=== PATIENT | female | born 1945 | race Caucasian/White ===

== ENCOUNTER → 2023-08-19 12:56 | Outpatient (REF) | payer MEDICARE, SELFPAY ==
[2023-08-19 14:24] LABS: ALT (SGPT) 18 U/L (0-35); AST (SGOT) 32 U/L (14-36); Albumin 3.8 g/dl (3.5-5.0); Alkaline Phosphatase 89 U/L (38-126); Blood Urea Nitrogen 25 mg/dl (7-17); Calcium 9.2 mg/dl (8.4-10.2); Carbon Dioxide 26 mmol/L (22-30); Chloride 105 mmol/L (98-107); Glucose 98 mg/dl (70-99); Potassium 4.3 mmol/L (3.5-5.1); Sodium 136 mmol/L (135-145); Total Bilirubin 0.6 mg/dl (0.2-1.3)
[2023-08-19 14:51] LABS: Vitamin D, 25-OH*** 36.4 ng/mL (30-80)
[2023-08-19 14:58] LABS: TSH < 0.02 uIU/ml (0.47-4.68)
== END ==
LOC: REG 12:56
PROVIDERS: ATTENDING PHYSICIAN Internal Medicine Endocrinology, Diabetes & Metabolism; FAMILY PHYSICIAN Family Medicine
DX: E03.8 Other specified hypothyroidism (principal); E06.3 Autoimmune thyroiditis; E55.9 Vitamin D deficiency, unspecified
CPT/HCPCS: 36415; 80053; 82306; 84443

== ENCOUNTER → 2023-09-08 13:36 | Outpatient (REF) | payer MEDICARE, SELFPAY ==
[2023-09-08 14:29] LABS: ALT (SGPT) 19 U/L (0-35); AST (SGOT) 35 U/L (14-36); Albumin 3.8 g/dl (3.5-5.0); Alkaline Phosphatase 87 U/L (38-126); Blood Urea Nitrogen 22 mg/dl (7-17); Calcium 9.4 mg/dl (8.4-10.2); Carbon Dioxide 25 mmol/L (22-30); Chloride 106 mmol/L (98-107); Glucose 100 mg/dl (70-99); Sodium 136 mmol/L (135-145); Total Bilirubin 0.4 mg/dl (0.2-1.3); Total Protein 6.1 g/dl (6.3-8.2); eGFR 56.95
[2023-09-08 15:02] LABS: TSH < 0.02 uIU/ml (0.47-4.68)
[2023-09-08 15:56] LABS: Vitamin D, 25-OH*** 40.7 ng/mL (30-80)
== END ==
LOC: REG 13:36
PROVIDERS: ATTENDING PHYSICIAN Internal Medicine Endocrinology, Diabetes & Metabolism; FAMILY PHYSICIAN Family Medicine
DX: E03.8 Other specified hypothyroidism (principal); E06.3 Autoimmune thyroiditis; E55.9 Vitamin D deficiency, unspecified
CPT/HCPCS: 36415; 80053; 82306; 84443

== ENCOUNTER → 2023-09-28 12:13 | Outpatient (REF) | payer MEDICARE, SELFPAY ==
[2023-09-28 13:42] LABS: ALT (SGPT) 18 U/L (0-35); AST (SGOT) 29 U/L (14-36); Albumin 3.6 g/dl (3.5-5.0); Alkaline Phosphatase 87 U/L (38-126); Blood Urea Nitrogen 23 mg/dl (7-17); Calcium 9.6 mg/dl (8.4-10.2); Carbon Dioxide 24 mmol/L (22-30); Chloride 104 mmol/L (98-107); Glucose 108 mg/dl (70-99); Potassium 4.4 mmol/L (3.5-5.1); Sodium 136 mmol/L (135-145); Total Bilirubin 0.3 mg/dl (0.2-1.3); Total Protein 5.9 g/dl (6.3-8.2); eGFR > 60.00
[2023-09-28 14:00] LABS: Vitamin D, 25-OH*** 31.6 ng/mL (30-80)
[2023-09-28 14:14] LABS: TSH < 0.02 uIU/ml (0.47-4.68)
== END ==
LOC: REG 12:13
PROVIDERS: ATTENDING PHYSICIAN Internal Medicine Endocrinology, Diabetes & Metabolism; FAMILY PHYSICIAN Family Medicine
DX: E55.9 Vitamin D deficiency, unspecified (principal); E03.8 Other specified hypothyroidism; E06.3 Autoimmune thyroiditis
CPT/HCPCS: 36415; 80053; 82306; 84443

== ENCOUNTER → 2023-10-14 10:45 | Outpatient (REF) | payer MEDICARE, SELFPAY ==
[2023-10-14 15:55] LABS: ALT (SGPT) 17 U/L (0-35); AST (SGOT) 31 U/L (14-36); Albumin 3.7 g/dl (3.5-5.0); Alkaline Phosphatase 82 U/L (38-126); Blood Urea Nitrogen 23 mg/dl (7-17); Calcium 9.8 mg/dl (8.4-10.2); Carbon Dioxide 28 mmol/L (22-30); Chloride 102 mmol/L (98-107); Glucose 87 mg/dl (70-99); Potassium 4.5 mmol/L (3.5-5.1); Sodium 136 mmol/L (135-145); Total Bilirubin 0.4 mg/dl (0.2-1.3); Total Protein 6.1 g/dl (6.3-8.2)
[2023-10-14 16:12] LABS: Free T4 0.68 ng/dl (0.78-2.19); Vitamin D, 25-OH*** 31.4 ng/mL (30-80)
[2023-10-14 16:25] LABS: TSH 2.82 uIU/ml (0.47-4.68)
[2023-10-15 10:16] LABS: Intact PTH 54.1 pg/ml (13.6-85.8)
[2023-10-16 21:52] LABS: Thyroid Stim. Immunoglobulin <0.10 IU/L (<=0.54)
[2023-10-17 02:29] LABS: Total T3 (Sendout) 50 ng/dL (80-200)
[2023-10-17 02:37] LABS: TSH Receptor Antibody <1.10 IU/L (<=1.75)
== END ==
LOC: HWLAB 10:45
PROVIDERS: ATTENDING PHYSICIAN Internal Medicine Endocrinology, Diabetes & Metabolism; FAMILY PHYSICIAN Family Medicine
DX: M81.0 Age-related osteoporosis without current pathological fracture (principal); E55.9 Vitamin D deficiency, unspecified; E03.8 Other specified hypothyroidism; E06.3 Autoimmune thyroiditis
CPT/HCPCS: 36415; 80053; 82306; 83520; 83970; 84439; 84443; 84445; 84480

== ENCOUNTER → 2023-10-26 12:32 | Outpatient (REF) | payer MEDICARE, SELFPAY ==
[2023-10-26 17:19] LABS: 24 Hour Urine Total Volume 500 ml
[2023-10-26 17:51] LABS: 24 Hour Urine Calcium 49.5 mg/day; Urine Calcium 9.9 mg/dl
== END ==
LOC: HWLAB 12:32
PROVIDERS: ATTENDING PHYSICIAN Internal Medicine Endocrinology, Diabetes & Metabolism; FAMILY PHYSICIAN Family Medicine
DX: M81.0 Age-related osteoporosis without current pathological fracture (principal)
CPT/HCPCS: 81050; 82340; 82570

== ENCOUNTER 2023-11-10 08:32 | Emergency (ER) | payer MEDICARE, SELFPAY ==
[2023-11-10 08:36] VITALS: BP 168/82
--- NOTE | 2023-11-10 10:16 | ED.GENMED ---
History of Present Illness
<Celina Mcgraw PA-C - Last Filed: 11/10/23 15:54>
General
Chief Complaint: Bowel Problem
Source: patient
Exam Limitations: none
Time Seen by Provider: 11/10/23 09:53
Nursing documentation reviewed up to this point in time: agreed with
Travel History
Have you had any contact with someone who has COVID-19?: No
Do you have any symptoms of coronavirus? Fever > 100 degrees, chills, cough, shortness of breath, sore throat, loss of taste or smell, muscle aches, or headache?: No
History of Present Illness
History of Present Illness:
Patient is an 78 year old female w history hypertension, hypothyroid, diverticulitis presenting to the emergency department for evaluation of constipation. Patient states that she has had very few, small bowel movements over the past 2 weeks. She
denies any abdominal pain, nausea, vomiting, decreased appetite, or fever. Patient denies any urinary symptoms, chest pain, or shortness of breath. She denies any hematochezia or melena.
Patient was seen by her senior asic engineer in early October where her TSH was found to be significantly low and her levothyroxine was discontinued. Patient states symptoms of constipation and chills began approx 1-2 weeks after d/c'ing levothyroxine. She
spoke with her senior asic engineer this past Tuesday, about 3 days ago, and was instructed to restart levothyroxine and try Benefiber BID. She has not noticed much increase in frequency of bowel movements and came to emergency department for further
evaluation.
Past History
<Celina Mcgraw PA-C - Last Filed: 11/10/23 15:54>
Past History
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
ED Past Surgical History: Gynecological (hysterectomy)
Social History
Tobacco: Non-smoker
Alcohol: Occasional
Drug: None
Personal:
Living: with family
Family History
Family History: Other (reviewed and non-contributory)
Review of Systems
<Celina Mcgraw PA-C - Last Filed: 11/10/23 15:54>
Review of Systems
Allergies reviewed?: Yes
All Other Systems: ROS reviewed and negative except as documented in HPI and ROS
Phy Exam
<Celina Mcgraw PA-C - Last Filed: 11/10/23 15:54>
Physical Exam
Physical Exam:
Vitals: Patient's vital signs are stable
General: Patient is well appearing, no acute distress
Skin: Warm and dry, no rashes or lesions
Head: Normocephalic, atraumatic
Eyes: Sclera nonicteric. EOMs intact. No nystagmus.
Throat: Protecting airway
Neck: Normal ROM, no cervical spine tenderness, no meningismus
Cardiac: Regular rate and rhythm, no murmurs.
Pulm: Normal respiratory effort, no wheezes, rales, rhonchi heard on exam.
Abdomen: Abdomen soft and nontender in all four quadrants, no rebound tenderness or guarding
Rectal: No stool in rectal vault, guaiac negative
Extremities: No evidence of cyanosis or edema; DP pulses palpable bilaterally
Neuro: AAOx3. CN II-XII intact. No focal neurologic deficits.
Psychiatric: Normal affect.
Course
<Celina Mcgraw PA-C - Last Filed: 11/10/23 15:54>
Orders/Labs/Results
Orders:
Orders
11/10/23 10:30
0.9% Sodium Chloride 1000 ml [Nss] 1,000 ml IV BOLUS
Obstruct Series W/PA Chest [CR Obstruct Series W/pa Chest] Urgent
Comment:
Reason For Exam: cosntipation
11/10/23 11:01
Complete Blood Count/With Diff Urgent
Comprehensive Metabolic Panel Urgent
Free T4 Urgent
Lipase Urgent
TSH Reflex To Free T4 Urgent
Abnormal Lab Results
11/10/23
11:01
RBC 4.19 L 10^6/uL
(4.20-5.40)
Hgb 11.7 L g/dL
(12.0-16.0)
Hct 35.2 L %
(37.0-47.0)
Absolute Monos (auto) 0.7 H 10^3/uL
(0.1-0.6)
Monocytes % 9.5 H %
(1.7-9.3)
Creatinine 1.1 H mg/dL
(0.6-1.0)
AST 39 H U/L
(14-36)
TSH (Reflex) 56.30 H uIU/ml
(0.47-4.68)
11/10/23 11:01
11/10/23 11:01
Vital Signs
Initial and Last Documented VS:
Initial Vital Signs
Temp Pulse Resp BP Pulse Ox
97.6 F 64 18 168/82 99
11/10/23 08:36 11/10/23 08:36 11/10/23 08:36 11/10/23 08:36 11/10/23 08:36
Last Documented Vital Signs
Temp Pulse Resp BP Pulse Ox
97.6 F 61 18 112/62 100
11/10/23 08:36 11/10/23 14:47 11/10/23 14:47 11/10/23 14:47 11/10/23 14:47
Sugeylt;Sanjeev Kang DO - Last Filed: 11/10/23 10:34>
Orders/Labs/Results
Orders:
Orders
11/10/23 10:30
0.9% Sodium Chloride 1000 ml [Nss] 1,000 ml IV BOLUS
Obstruct Series W/PA Chest [CR Obstruct Series W/pa Chest] Urgent
Comment:
Reason For Exam: cosntipation
11/10/23 11:01
Complete Blood Count/With Diff Urgent
Comprehensive Metabolic Panel Urgent
Free T4 Urgent
Lipase Urgent
TSH Reflex To Free T4 Urgent
Abnormal Lab Results
11/10/23
11:01
RBC 4.19 L 10^6/uL
(4.20-5.40)
Hgb 11.7 L g/dL
(12.0-16.0)
Hct 35.2 L %
(37.0-47.0)
Absolute Monos (auto) 0.7 H 10^3/uL
(0.1-0.6)
Monocytes % 9.5 H %
(1.7-9.3)
Creatinine 1.1 H mg/dL
(0.6-1.0)
AST 39 H U/L
(14-36)
TSH (Reflex) 56.30 H uIU/ml
(0.47-4.68)
11/10/23 11:01
11/10/23 11:01
Vital Signs
Initial and Last Documented VS:
Initial Vital Signs
Temp Pulse Resp BP Pulse Ox
97.6 F 64 18 168/82 99
11/10/23 08:36 11/10/23 08:36 11/10/23 08:36 11/10/23 08:36 11/10/23 08:36
Last Documented Vital Signs
Temp Pulse Resp BP Pulse Ox
97.6 F 61 18 112/62 100
11/10/23 08:36 11/10/23 14:47 11/10/23 14:47 11/10/23 14:47 11/10/23 14:47
<Celina Mcgraw PA-C - Last Filed: 11/10/23 15:54>
MDM/Problems Addressed
Differential Diagnosis Includes:
Not limited to: constipation, hypothyroid, diverticulitis, IBS, bowel obstruction, malignancy
MDM/Problems Addressed:
78 year old female with history as documented presenting for evaluation of constipation over the past two weeks. This did start following discontinuation of Synthroid by direction of her senior asic engineer. No associated abdominal pain, fevers, nausea,
or vomiting. Patient did restart Synthroid 3 days ago after speaking to senior asic engineer. Vitals stable. Exam as above. Patient very well appearing, in no apparent distress. Abdomen soft and nontender. Rectal exam revealed no stool in rectal vault,
guaiac negative. No evidence of fecal impaction. Will check basic labs, thyroid, plan film of abdomen given empty rectal vault. Ancipitate discharge. Will monitor closely.
Xray shows stool in colon consistent with constipation without any evidence of obstruction.
Labs noted. TSH is elevated to 56.3. Free T4 at the lower limit of normal at 0.80. Patient does have stable vital signs, she is alert and oriented. I do believe patient is displaying symptoms from subclinical hypothyroidism-likely due to recent
time off of levothyroxine. This is likely to explain constipation. No indication for admission. Return precautions discussed at length. Recommended magnesium citrate, MiraLAX at home for constipation. She should continue to take medication as
prescribed and follow with endocrinology for further management hypothyroidism. She will call for appointment tomorrow. All questions answered.
Chronic conditions affecting care:
Hypothyroid, diverticulitis
Acute Exacerbation and/or Progression of Chronic Illness:
Subclinical hypothyroidism
<Celina Mcgraw PA-C - Last Filed: 11/10/23 15:54>
*Radiology
Radiology exam reviewed: preliminary read by ED provider and radiology read reviewed
*Pulse Oximetry
Patient hypoxic: no
*EKG
Interpreted by ED Provider?: NA
*Retail Director Interpretation
Rate: Retail Director- N/A
*Critical Care Note
Total Time (30-74mins, 75-104mins- exclusive of procedures): Not Applicable
Data Reviewed
Review of Other/Old Records Reveals: Labs and Records
Source: previous hospital records
ED Attending Note
<Celina Mcgraw PA-C - Last Filed: 11/10/23 15:54>
-
Portions of this chart may have been created with voice recognition software.� Occasional wrong word or��sound alike� substitutions may have occurred due to the inherent limitations of voice recognition software.
<Sanjeev Kang DO - Last Filed: 11/10/23 10:34>
ED Attending Note
Patient seen and examined by attending physician: Yes
I performed the substantive portion of visit, reviewed & personally made and approve the management plan that is documented in note by myself or ODILON.: Yes
I performed a history and physical exam of patient and discussed management with resident, I reviewed resident's note and agree with documented findings and plan of care.: Yes
ED Attending Note:
I evaluated the patient at bedside. The patient has an empty rectal vault. Will check thyroid testing as well as plain film imaging of the abdomen however she has no significant abdominal pain nor abdominal tenderness.
Discharge Plan
Departure
Patient Disposition: Home (Routine Discharge)
Date of Disposition: 11/10/23
Time of Disposition: 14:55
Patient with high blood pressure during this ER visit?: No
Condition: Good
Covid-19: Not Applicable
Discharge Problem:
Constipation, Subclinical hypothyroidism
Instructions: Hypothyroidism (underactive thyroid), Constipation, Adult (DC)
Prescriptions:
No Action
levothyroxine 100 MCG tablet
100 mcg PO HS
cyanocobalamin (vitamin B-12) 1,000 MCG tablet
1,000 mcg PO DAILY
cholecalciferol (vitamin D3) 1,000 UNITS tablet
1,000 units PO DAILY
multivitamin with folic acid [Tab-A-Milla] 1 TABLET tablet
1 tab PO DAILY
aspirin 81 MG tablet,chewable
81 mg PO DAILY Qty: 30 0RF
Rx Instructions:
take with plavix x 21 days then cont aspirin alone
lisinopril capsule
20 mg PO HS
simvastatin capsule
20 mg PO HS
Referrals:
Buzz Barboza MD [Family Provider] - Follow up in 2-3 days
Activity Restrictions/Additional Instructions:
- Return to the emergency department with any high fevers, severe abdominal pain, persistent nausea/vomiting, dizziness/lightheadedness, altered mental status, worsening in current symptoms, or any other concerns
-As discussed�you should try magnesium citrate at home for constipation. You can buy this [id number]. You should drink half of the bottle and repeat in 12 hours if no bowel movement. You can also try MiraLAX. It is important to stay
well-hydrated. Eat foods high in fiber
-As discussed�your TSH level was elevated while in the emergency department. Your T4 level was found to be at the low end of the normal range. You should follow-up with your senior asic engineer in the next few days for further evaluation/management of
hypothyroidism. Continue to take your levothyroxine as prescribed.
Interventions
Interventions:
*Risk Screen - Suicide Last Done: 11/10/23 15:15
*General Assessment Last Done: 11/10/23 15:15
*Neglect/Abuse Screening Last Done: 11/10/23 11:32
ED- Fall Risk Assessment Last Done: 11/10/23 15:15
*ED COVID-19 Vaccine History Last Done: 11/10/23 08:36
*Nursing Disposition Last Done: 11/10/23 15:15
GZ-Gjzfuc-Hapusfnvyu Assessment Last Done: 11/10/23 11:32
Discharge Date and Time
Discharge Date/Time: 11/10/23 15:30
Print Language: [place]LAND[place]
[2023-11-10] MEDS: NSS 1000 IV (11:05)
[2023-11-10 11:16] LABS: % Basophils 0.4 % (0-2); % Eosinophils 1.9 % (0-6); % Immature Granulocytes 0.3 % (0-0.5); % Lymphocytes 22.1 % (20.5-51.1); % Monocytes 9.5 % (1.7-9.3); % Neutrophils 65.8 % (42.2-75.2); Absolute Eosinophils 0.1 10^3/uL (0-0.7); Absolute Lymphocytes 1.5 10^3/uL (1.2-3.4); Absolute Monocytes 0.7 10^3/uL (0.1-0.6); Absolute Neutrophils 4.5 10^3/uL (1.4-6.5); Hematocrit 35.2 % (37.0-47.0); Hemoglobin 11.7 g/dL (12.0-16.0); Mean Corp Hgb Conc. 33.2 g/dL (33.0-37.0); Mean Corpuscular Hgb 27.9 pg (27.0-31.0); Mean Platelet Volume 9.7 fL (7.4-10.4); Nucleated Red Blood Cells % 0 %; Platelet Count 330 10^3/uL (130-400); Red Blood Cell Count 4.19 10^6/uL (4.20-5.40); Red Cell Dist. Width 13.2 % (11.5-14.5); White Blood Cell Count 6.9 10^3/uL (4.8-10.8)
[2023-11-10 12:09] LABS: ALT (SGPT) 17 U/L (0-35); AST (SGOT) 39 U/L (14-36); Albumin 4.1 g/dl (3.5-5.0); Alkaline Phosphatase 88 U/L (38-126); Blood Urea Nitrogen 17 mg/dl (7-17); Calcium 9.7 mg/dl (8.4-10.2); Carbon Dioxide 27 mmol/L (22-30); Chloride 105 mmol/L (98-107); Glucose 96 mg/dl (70-99); Lipase 164 U/L (23-300); Potassium 4.2 mmol/L (3.5-5.1); Sodium 136 mmol/L (135-145); Total Bilirubin 0.4 mg/dl (0.2-1.3); Total Protein 6.5 g/dl (6.3-8.2)
[2023-11-10 12:34] VITALS: BP 152/73
[2023-11-10 14:47] VITALS: BP 112/62
== END 2023-11-10 15:30 | disposition home or self-care (01) ==
LOC: EMR 08:32
PROVIDERS: Physician Assistant; EMERGENCY PHYSICIAN Emergency Medicine; FAMILY PHYSICIAN Family Medicine
DX: K59.00 Constipation, unspecified (principal); E03.8 Other specified hypothyroidism; I10 Essential (primary) hypertension; E78.00 Pure hypercholesterolemia, unspecified; Z86.73 Personal history of transient ischemic attack (TIA), and cerebral infarction without residual deficits; Z90.710 Acquired absence of both cervix and uterus
CPT/HCPCS: 99283; 96360; 74022; 80053; 83690; 84439; 84443; 85025

== ENCOUNTER → 2024-02-16 13:49 | Outpatient (REF) | payer MEDICARE, SELFPAY | LOC: WDC 13:49 | PROVIDERS: ATTENDING PHYSICIAN Obstetrics & Gynecology Gynecology; FAMILY PHYSICIAN Family Medicine | DX: Z12.31 Encounter for screening mammogram for malignant neoplasm of breast (principal) | CPT/HCPCS: 77063; 77067 ==

== ENCOUNTER 2024-07-17 09:10 | Emergency (ER) | payer MEDICARE, SELFPAY ==
[2024-07-17 09:18] VITALS: BP 164/83
[2024-07-17 09:56] VITALS: BMI 23.8
[2024-07-17 09:58] VITALS: BP 159/86
--- NOTE | 2024-07-17 10:00 | ED.GENMED ---
Addendum entered and electronically signed by Lorenzo Freeman PA-C 07/19/24 07:03:
Luminary urine culture shows greater than 100,000 colony-forming units of gram-negative bacilli. On Keflex. Sensitivities pending
Original Note:
History of Present Illness
<Talha Landis MD, Resident - Last Filed: 07/18/24 15:02>
General
Chief Complaint: Urinary Symptoms
Time Seen by Provider: 07/17/24 09:57
Travel History
Have you traveled to any high risk areas for coronavirus over the past 14 days?: No
Have you had any contact with someone who has COVID-19?: No
Do you have any symptoms of coronavirus? Fever > 100 degrees, chills, cough, shortness of breath, sore throat, loss of taste or smell, muscle aches, or headache?: No
History of Present Illness
History of Present Illness:
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
emergency department today with 2 days history of vaginal discomfort and hematuria with blood clots this morning. She also reports symptoms of dysuria but denies flank pain, fever and chills. Patient reports that she has a history of vaginal
cancer that was treated with surgery and radiation with total abdominal hysterectomy about 30 years ago and has been wearing adult diapers since then for urinary incontinence. Patient also reports that she feels her epigastric region a small
distended than usual. She denies itchiness, trauma, vigorous exercise, flank pain, adnexal pain, abdominal pain, nausea, constipation, diarrhea, dizziness, swelling, or bleeding in any other part of her body. She does takes aspirin but not any
other blood thinners.
Past History
<Talha Landis MD, Resident - Last Filed: 07/18/24 15:02>
Past History
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
ED Past Surgical History: Gynecological (hysterectomy, cancer resection and radiation)
Social History
Tobacco: Non-smoker
Alcohol: Occasional
Drug: None
Personal:
Living: with family
Family History
Family History: Other (reviewed and non-contributory)
Review of Systems
<Talha Landis MD, Resident - Last Filed: 07/18/24 15:02>
Review of Systems
All Other Systems: ROS reviewed and negative except as documented in HPI and ROS
Phy Exam
<Talha Landis MD, Resident - Last Filed: 07/18/24 15:02>
General Physical Exam
General Presentation: well appearing and no apparent distress
General age: appears stated age
General Skin: warm and dry
General Habitus: normal
General Mental: alert
General Hydration: appears well hydrated
Gastrointestinal Exam
Gastrointestinal Exam: normal bowel sounds, non tender, soft, no organomegaly, no cva tenderness and distended (In the epigastric region)
Genitourinary Exam Female
Exam Female: no adnexal tenderness, no bleeding, no lesions and no mass
Vaginal Exam: normal and blood (Residual blood clot)
Vaginal Bleeding: none
Skin Exam
Skin Exam: normal color, warm/dry, no rash and no petechia
Course
<Talha Landis MD, Resident - Last Filed: 07/18/24 15:02>
Orders/Labs/Results
Orders:
Orders
07/17/24 10:00
Urinalysis Reflex To Culture Urgent
Date Specimen was Collected: 07/17/24
Time Specimen was Collected: 09:22
Urine Microscopic Reflex Cult Urgent
Urine Culture Urgent
FREDDY Source: U
Specimen Description:
Obtained by: Random
Date Specimen was Collected: 07/17/24
Time Specimen was Collected: 09:22
07/17/24 11:01
Abdomen/Pelvis w Contrast CT [CT Abd/pelvis W Iv Cont] Stat
Comment:
Reason For Exam: Hematuria, history of uterine cancer
07/17/24 11:14
Cephalexin Monohydrate [Keflex] 500 mg PO NOW STA
07/17/24 11:18
BMP [Basic Metabolic Panel] Stat
CBC/With Diff [Complete Blood Count/With Diff] Stat
Abnormal Lab Results
07/17/24 07/17/24
10:00 11:18
Hgb 11.5 L g/dL
(12.0-16.0)
Hct 34.7 L %
(37.0-47.0)
Absolute Neuts (auto) 8.1 H 10^3/uL
(1.4-6.5)
Absolute Monos (auto) 0.8 H 10^3/uL
(0.1-0.6)
Neutrophils % 78.6 H %
(42.2-75.2)
Lymphocytes % 11.8 L %
(20.5-51.1)
BUN 23 H mg/dl
(7-17)
Glucose 104 H mg/dl
(70-99)
Ur Occult Blood Reflex 4+ A
(Negative)
Urine Nitrite (Reflex) Positive A
(Negative)
Leukocyte Esterase Rfl 2+ A
(Negative)
Urine RBC 60-70 A /HPF
(0-2)
Urine WBC (Reflex) 40-50 A /HPF
(0-5)
Urine Bacteria (Reflex) Many A
(Negative)
Urine Albumin (Reflex) 2+ A
(Neg - Trace)
07/17/24 11:18
07/17/24 11:18
Vital Signs
Initial and Last Documented VS:
Initial Vital Signs
Temp Pulse Resp BP Pulse Ox
98 F 78 16 164/83 99
07/17/24 09:18 07/17/24 09:18 07/17/24 09:18 07/17/24 09:18 07/17/24 09:18
Last Documented Vital Signs
Temp Pulse Resp BP Pulse Ox
98 F 78 16 161/76 98
07/17/24 09:18 07/17/24 09:18 07/17/24 09:18 07/17/24 13:00 07/17/24 14:00
<Obdulio Alejandre, DO - Last Filed: 07/17/24 11:47>
Orders/Labs/Results
Orders:
Orders
07/17/24 10:00
Urinalysis Reflex To Culture Urgent
Date Specimen was Collected: 07/17/24
Time Specimen was Collected: 09:22
Urine Microscopic Reflex Cult Urgent
Urine Culture Urgent
FREDDY Source: U
Specimen Description:
Obtained by: Random
Date Specimen was Collected: 07/17/24
Time Specimen was Collected: 09:22
07/17/24 11:01
Abdomen/Pelvis w Contrast CT [CT Abd/pelvis W Iv Cont] Stat
Comment:
Reason For Exam: Hematuria, history of uterine cancer
07/17/24 11:14
Cephalexin Monohydrate [Keflex] 500 mg PO NOW STA
07/17/24 11:18
BMP [Basic Metabolic Panel] Stat
CBC/With Diff [Complete Blood Count/With Diff] Stat
Abnormal Lab Results
07/17/24 07/17/24
10:00 11:18
Hgb 11.5 L g/dL
(12.0-16.0)
Hct 34.7 L %
(37.0-47.0)
Absolute Neuts (auto) 8.1 H 10^3/uL
(1.4-6.5)
Absolute Monos (auto) 0.8 H 10^3/uL
(0.1-0.6)
Neutrophils % 78.6 H %
(42.2-75.2)
Lymphocytes % 11.8 L %
(20.5-51.1)
BUN 23 H mg/dl
(7-17)
Glucose 104 H mg/dl
(70-99)
Ur Occult Blood Reflex 4+ A
(Negative)
Urine Nitrite (Reflex) Positive A
(Negative)
Leukocyte Esterase Rfl 2+ A
(Negative)
Urine RBC 60-70 A /HPF
(0-2)
Urine WBC (Reflex) 40-50 A /HPF
(0-5)
Urine Bacteria (Reflex) Many A
(Negative)
Urine Albumin (Reflex) 2+ A
(Neg - Trace)
07/17/24 11:18
07/17/24 11:18
Vital Signs
Initial and Last Documented VS:
Initial Vital Signs
Temp Pulse Resp BP Pulse Ox
98 F 78 16 164/83 99
07/17/24 09:18 07/17/24 09:18 07/17/24 09:18 07/17/24 09:18 07/17/24 09:18
Last Documented Vital Signs
Temp Pulse Resp BP Pulse Ox
98 F 78 16 161/76 98
07/17/24 09:18 07/17/24 09:18 07/17/24 09:18 07/17/24 13:00 07/17/24 14:00
<Talha Landis MD, Resident - Last Filed: 07/18/24 15:02>
MDM/Problems Addressed
Differential Diagnosis Includes:
Acute hemorrhagic cystitis, recurrent vaginal cancer, bladder cancer, hematologic renal cysts
MDM/Problems Addressed:
79-year-old female with PMH of gynecologic cancer s/p LING, resection and radiation 20 years ago who presented to the emergency department today with 2 days history of vaginal discomfort and hematuria that started this morning.
Will obtain urinalysis with urine culture.
Obtain CT abdomen/pelvis with IV contrast
Chronic conditions affecting care: Previous abdomnial surgery (Hysterectomy, uterine cancer with resection and radiation)
<Talha Landis MD, Resident - Last Filed: 07/18/24 15:02>
*Pulse Oximetry
Patient hypoxic: no
*Critical Care Note
Total Time (30-74mins, 75-104mins- exclusive of procedures): Not Applicable
Data Reviewed
Review of Other/Old Records Reveals: Labs (CR 1.1)
<Talha Landis MD, Resident - Last Filed: 07/18/24 15:02>
Update Note
Update Note:
Urinalysis positive for leukocyte esterase, blood, RBC, leukocytosis and bacteria. Due to her history of gynecologic cancer with radiation this is most likely chronic cystitis. Will treat this as a complicated UTI with 500 mg Keflex twice daily
for 7 days.
Urinary culture is pending.
CT abdomen/pelvis with IV contrast report shows several hepatic and bilateral renal cysts previously seen on CT abdomen/pelvis 06/21/2022.
ED Attending Note
<Talha Landis MD, Resident - Last Filed: 07/18/24 15:02>
-
Portions of this chart may have been created with voice recognition software.� Occasional wrong word or��sound alike� substitutions may have occurred due to the inherent limitations of voice recognition software.
<Obdulio Alejandre, DO - Last Filed: 07/17/24 11:47>
ED Attending Note
Patient seen and examined by attending physician: Yes
I performed a history and physical exam of patient and discussed management with resident, I reviewed resident's note and agree with documented findings and plan of care.: Yes
ED Attending Note:
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
urinalysis noted will start on antibiotics check labs screening CT scan
Discharge Plan
Departure
Patient Disposition: Home (Routine Discharge)
Date of Disposition: 07/17/24
Time of Disposition: 15:50
Patient with high blood pressure during this ER visit?: Yes
Discharge Problem:
Acute UTI, Hematuria, Hepatic cyst, Renal cyst, left, Renal cyst, right
Instructions: Urinary Tract Infection, Adult (DC), BLOOD PRESSURE
Prescriptions:
New
cephalexin 500 mg capsule
500 mg PO BID 10 Days Qty: 20 0RF
No Action
levothyroxine 100 MCG tablet
100 mcg PO HS
cyanocobalamin (vitamin B-12) 1,000 MCG tablet
1,000 mcg PO DAILY
cholecalciferol (vitamin D3) 1,000 UNITS tablet
1,000 units PO DAILY
multivitamin with folic acid [Tab-A-Milla] 1 TABLET tablet
1 tab PO DAILY
aspirin 81 MG tablet,chewable
81 mg PO DAILY Qty: 30 0RF
Rx Instructions:
take with plavix x 21 days then cont aspirin alone
lisinopril capsule
20 mg PO HS
simvastatin capsule
20 mg PO HS
Referrals:
Buzz Barboza MD [Family Provider] - Call in 1-3 days for appt
Interventions
Interventions:
*Risk Screen - Suicide Last Done: 07/17/24 09:18
*General Assessment Last Done: 07/17/24 09:18
*Neglect/Abuse Screening Last Done: 07/17/24 09:18
ED- Fall Risk Assessment Last Done: 07/17/24 09:56
*ED COVID-19 Vaccine History Last Done: 07/17/24 09:56
*Nursing Disposition Last Done: 07/17/24 16:20
ED-Female Genitourinary Assessment Last Done: 07/17/24 09:56
Discharge Date and Time
Discharge Date/Time: 07/17/24 16:20
Print Language: MAORI
[2024-07-17 10:14] LABS: Urine Albumin 2+ (Neg - Trace); Urine Bilirubin Negative (Negative); Urine Character Very Cloudy (Clear); Urine Color Brown; Urine Glucose Negative (Negative); Urine Ketone Negative (Negative); Urine Leukocyte 2+ (Negative); Urine Nitrite Positive (Negative); Urine Occult Blood 4+ (Negative); Urine Urobilinogen Negative (Neg - 1+)
[2024-07-17 10:23] LABS: Urine Squamous Cell 0-2 /LPF (Few)
[2024-07-17 10:28] LABS: Urine Bacteria Many (Negative); Urine Red Blood Cell 60-70 /HPF (0-2); Urine White Cell 40-50 /HPF (0-5)
[2024-07-17 11:02] VITALS: BP 176/79
[2024-07-17 11:19] VITALS: BP 175/76
[2024-07-17] MEDS: KEFLEX 500 MG PO (11:25)
[2024-07-17 11:35] LABS: % Basophils 0.3 % (0-2); % Eosinophils 1.3 % (0-6); % Immature Granulocytes 0.3 % (0-0.5); % Lymphocytes 11.8 % (20.5-51.1); % Monocytes 7.7 % (1.7-9.3); % Neutrophils 78.6 % (42.2-75.2); Absolute Eosinophils 0.1 10^3/uL (0-0.7); Absolute Lymphocytes 1.2 10^3/uL (1.2-3.4); Absolute Monocytes 0.8 10^3/uL (0.1-0.6); Absolute Neutrophils 8.1 10^3/uL (1.4-6.5); Hematocrit 34.7 % (37.0-47.0); Hemoglobin 11.5 g/dL (12.0-16.0); Mean Corp Hgb Conc. 33.1 g/dL (33.0-37.0); Mean Corpuscular Hgb 27.4 pg (27.0-31.0); Mean Corpuscular Volume 82.6 fL (81.0-99.0); Mean Platelet Volume 9.8 fL (7.4-10.4); Nucleated Red Blood Cells % 0 %; Platelet Count 348 10^3/uL (130-400); Red Cell Dist. Width 13.8 % (11.5-14.5); White Blood Cell Count 10.3 10^3/uL (4.8-10.8)
[2024-07-17 11:58] LABS: Blood Urea Nitrogen 23 mg/dl (7-17); Calcium 9.5 mg/dl (8.4-10.2); Carbon Dioxide 29 mmol/L (22-30); Chloride 104 mmol/L (98-107); Estimated Creatinine Clearance 36 ml/min; Glucose 104 mg/dl (70-99); Potassium 4.6 mmol/L (3.5-5.1); Sodium 139 mmol/L (135-145)
[2024-07-17 12:00] VITALS: BP 159/71
[2024-07-17 13:00] VITALS: BP 161/76
== END 2024-07-17 16:20 | disposition home or self-care (01) ==
LOC: EMR 09:10
PROVIDERS: Emergency Medicine; Student in an Organized Health Care Education/Training Program; EMERGENCY PHYSICIAN Emergency Medicine; FAMILY PHYSICIAN Family Medicine
DX: R10.2 Pelvic and perineal pain (principal); R31.9 Hematuria, unspecified; R30.0 Dysuria; R32 Unspecified urinary incontinence; N28.1 Cyst of kidney, acquired; K76.89 Other specified diseases of liver; E78.00 Pure hypercholesterolemia, unspecified; E03.9 Hypothyroidism, unspecified; I10 Essential (primary) hypertension; K57.90 Diverticulosis of intestine, part unspecified, without perforation or abscess without bleeding; Z85.42 Personal history of malignant neoplasm of other parts of uterus; Z92.3 Personal history of irradiation; Z86.73 Personal history of transient ischemic attack (TIA), and cerebral infarction without residual deficits; Z79.82 Long term (current) use of aspirin; Z88.8 Allergy status to other drugs, medicaments and biological substances
CPT/HCPCS: 99284; 74177; 80048; 81003; 81015; 85025; 87077; 87086; Q9967

== ENCOUNTER 2024-10-16 10:32 | Emergency (ER) | payer MEDICARE, SELFPAY ==
[2024-10-16 10:35] VITALS: BP 136/75
[2024-10-16 11:18] VITALS: BMI 23.2
[2024-10-16 11:34] LABS: % Basophils 0.2 % (0-2); % Eosinophils 1.4 % (0-6); % Immature Granulocytes 0.2 % (0-0.5); % Lymphocytes 21.8 % (20.5-51.1); % Monocytes 18.5 % (1.7-9.3); % Neutrophils 57.9 % (42.2-75.2); Absolute Eosinophils 0.1 10^3/uL (0-0.7); Absolute Lymphocytes 1.1 10^3/uL (1.2-3.4); Absolute Monocytes 0.9 10^3/uL (0.1-0.6); Absolute Neutrophils 2.9 10^3/uL (1.4-6.5); Hematocrit 32.5 % (37.0-47.0); Hemoglobin 10.8 g/dL (12.0-16.0); Mean Corp Hgb Conc. 33.2 g/dL (33.0-37.0); Mean Corpuscular Hgb 27.6 pg (27.0-31.0); Mean Corpuscular Volume 82.9 fL (81.0-99.0); Mean Platelet Volume 9.9 fL (7.4-10.4); Nucleated Red Blood Cells % 0 %; Platelet Count 248 10^3/uL (130-400); Red Blood Cell Count 3.92 10^6/uL (4.20-5.40); Red Cell Dist. Width 13.9 % (11.5-14.5)
[2024-10-16 11:51] LABS: ALT (SGPT) 18 U/L (0-35); AST (SGOT) 29 U/L (14-36); Albumin 3.6 g/dl (3.5-5.0); Alkaline Phosphatase 90 U/L (38-126); Blood Urea Nitrogen 22 mg/dl (7-17); Calcium 9.1 mg/dl (8.4-10.2); Carbon Dioxide 25 mmol/L (22-30); Chloride 105 mmol/L (98-107); Estimated Creatinine Clearance 30 ml/min; Glucose 98 mg/dl (70-99); Potassium 3.9 mmol/L (3.5-5.1); Sodium 134 mmol/L (135-145); Total Bilirubin 0.5 mg/dl (0.2-1.3); Total Protein 5.9 g/dl (6.3-8.2); eGFR 45.48
[2024-10-16 13:21] VITALS: BP 155/66
--- NOTE | 2024-10-16 13:41 | ED.GENMED ---
History of Present Illness
<Tremayne Patel PA-C - Last Filed: 10/16/24 14:39>
General
Chief Complaint: Throat Problem
Time Seen by Provider: 10/16/24 10:48
History of Present Illness
History of Present Illness:
79-year-old female presents to the emergency department for evaluation of severe throat pain for the past week. She was seen by her PCP at which time she had negative COVID, flu, and strep swabs. She has had continued difficulty swallowing saliva
and liquids, feels that she is choking. Denies any chest pain or dyspnea. No coughing. Denies any nasal congestion or rhinorrhea
Past History
<Tremayne Patel PA-C - Last Filed: 10/16/24 14:39>
Past History
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
ED Past Surgical History: Gynecological (hysterectomy, cancer resection and radiation)
Social History
Tobacco: Non-smoker
Alcohol: Occasional
Drug: None
Personal:
Living: with family
Family History
Family History: Other (reviewed and non-contributory)
Review of Systems
<Tremayne Patel PA-C - Last Filed: 10/16/24 14:39>
Review of Systems
Allergies reviewed?: Yes
All Other Systems: ROS reviewed and negative except as documented in HPI and ROS
Phy Exam
<Tremayne Patel PA-C - Last Filed: 10/16/24 14:39>
Physical Exam
Physical Exam:
GEN: Well appearing, NAD, WDWN
HEENT: Oral mucosa moist, no scleral icterus, no tonsillar hypertrophy or erythema, no obvious exudates however large amount of saliva/secretions in the oropharynx, mild hoarseness, no stridor
Cardiac: Regular rate and rhythm, no murmur
Lung: No respiratory distress, no tachypnea, lungs clear to auscultation bilaterally
MSK: No gross deformity or injuries
Skin: Good color, no pallor or jaundice, no rashes
Neuro: AO x3, moves all extremities freely
Psych: Calm, cooperative
Course
<Tremayne Patel PA-C - Last Filed: 10/16/24 14:39>
Orders/Labs/Results
Orders:
Orders
10/16/24 11:05
CT Neck With Iv Contrast Urgent
Comment:
Reason For Exam: dysphagia/hoarseness
10/16/24 11:25
Complete Blood Count/With Diff Urgent
Comprehensive Metabolic Panel Urgent
10/16/24 14:33
Dexamethasone Sod Phosphate [Decadron] 6 mg IV NOW STA
10/16/24 14:39
0.9% Sodium Chloride 500 ml [Nss] 500 ml IV BOLUS
Abnormal Lab Results
10/16/24
11:25
RBC 3.92 L 10^6/uL
(4.20-5.40)
Hgb 10.8 L g/dL
(12.0-16.0)
Hct 32.5 L %
(37.0-47.0)
Absolute Lymphs (auto) 1.1 L 10^3/uL
(1.2-3.4)
Absolute Monos (auto) 0.9 H 10^3/uL
(0.1-0.6)
Monocytes % 18.5 H %
(1.7-9.3)
Sodium 134 L mmol/L
(135-145)
BUN 22 H mg/dl
(7-17)
Creatinine 1.2 H mg/dL
(0.6-1.0)
Total Protein 5.9 L g/dl
(6.3-8.2)
10/16/24 11:25
10/16/24 11:25
Vital Signs
Initial and Last Documented VS:
Initial Vital Signs
Temp Pulse Resp BP Pulse Ox
97.9 F 75 16 136/75 97
10/16/24 10:35 10/16/24 10:35 10/16/24 10:35 10/16/24 10:35 10/16/24 10:35
Last Documented Vital Signs
Temp Pulse Resp BP Pulse Ox
98.3 F 76 20 168/82 96
10/16/24 16:14 10/16/24 16:14 10/16/24 16:14 10/16/24 16:14 10/16/24 16:14
<Christopher Suarez PA-C - Last Filed: 10/16/24 16:52>
Orders/Labs/Results
Orders:
Orders
10/16/24 11:05
CT Neck With Iv Contrast Urgent
Comment:
Reason For Exam: dysphagia/hoarseness
10/16/24 11:25
Complete Blood Count/With Diff Urgent
Comprehensive Metabolic Panel Urgent
10/16/24 14:33
Dexamethasone Sod Phosphate [Decadron] 6 mg IV NOW STA
10/16/24 14:39
0.9% Sodium Chloride 500 ml [Nss] 500 ml IV BOLUS
Abnormal Lab Results
10/16/24
11:25
RBC 3.92 L 10^6/uL
(4.20-5.40)
Hgb 10.8 L g/dL
(12.0-16.0)
Hct 32.5 L %
(37.0-47.0)
Absolute Lymphs (auto) 1.1 L 10^3/uL
(1.2-3.4)
Absolute Monos (auto) 0.9 H 10^3/uL
(0.1-0.6)
Monocytes % 18.5 H %
(1.7-9.3)
Sodium 134 L mmol/L
(135-145)
BUN 22 H mg/dl
(7-17)
Creatinine 1.2 H mg/dL
(0.6-1.0)
Total Protein 5.9 L g/dl
(6.3-8.2)
10/16/24 11:25
10/16/24 11:25
Vital Signs
Initial and Last Documented VS:
Initial Vital Signs
Temp Pulse Resp BP Pulse Ox
97.9 F 75 16 136/75 97
10/16/24 10:35 10/16/24 10:35 10/16/24 10:35 10/16/24 10:35 10/16/24 10:35
Last Documented Vital Signs
Temp Pulse Resp BP Pulse Ox
98.3 F 76 20 168/82 96
10/16/24 16:14 10/16/24 16:14 10/16/24 16:14 10/16/24 16:14 10/16/24 16:14
<Tremayne Patel PA-C - Last Filed: 10/16/24 14:39>
MDM/Problems Addressed
MDM/Problems Addressed:
79-year-old female presents with dysphagia and voice hoarseness for the past week. Exam of the oropharynx is benign thus given concern for potential deep space neck infection or retropharyngeal abscess. Labs are reassuring, CT neck obtained to
evaluate for deep space infection, pending at time of care signout. By my interpretation I see no evidence for a developing abscess thus we will treat supportively with steroids
<Christopher Suarez PA-C - Last Filed: 10/16/24 16:52>
*Radiology
Radiology exam reviewed: radiology read reviewed
*Critical Care Note
Total Time (30-74mins, 75-104mins- exclusive of procedures): Not Applicable
<Christopher Suarez PA-C - Last Filed: 10/16/24 16:52>
Patient Management
Escalation/DeEscalation of care consider admission/obs:
CT scan shows minor lymphadenopathy however no symptoms or findings to suggest peritonsillar abscess/retropharyngeal abscess. Patient tolerating her secretions. Stable for discharge home and outpatient follow-up.
ED Attending Note
<Tremayne Patel PA-C - Last Filed: 10/16/24 14:39>
-
Portions of this chart may have been created with voice recognition software.� Occasional wrong word or��sound alike� substitutions may have occurred due to the inherent limitations of voice recognition software.
Discharge Plan
Departure
Patient Disposition: Home (Routine Discharge)
Date of Disposition: 10/16/24
Time of Disposition: 15:40
Patient with high blood pressure during this ER visit?: Yes
Discharge Problem:
Laryngitis
Instructions: Laryngitis ED
Prescriptions:
New
prednisone 20 mg tablet
20 mg PO DAILY 4 Days Qty: 4 0RF
No Action
levothyroxine 100 MCG tablet
100 mcg PO HS
cyanocobalamin (vitamin B-12) 1,000 MCG tablet
1,000 mcg PO DAILY
cholecalciferol (vitamin D3) 1,000 UNITS tablet
1,000 units PO DAILY
multivitamin with folic acid [Tab-A-Milla] 1 TABLET tablet
1 tab PO DAILY
aspirin 81 MG tablet,chewable
81 mg PO DAILY Qty: 30 0RF
Rx Instructions:
take with plavix x 21 days then cont aspirin alone
lisinopril capsule
20 mg PO HS
simvastatin capsule
20 mg PO HS
cephalexin 500 mg capsule
500 mg PO BID 10 Days Qty: 20 0RF
Referrals:
Buzz Barboza MD [Family Provider] -
Activity Restrictions/Additional Instructions:
Start the oral steroid medications tomorrow
Interventions
Interventions:
*Risk Screen - Suicide Last Done: 10/16/24 10:35
*General Assessment Last Done: 10/16/24 10:35
*Neglect/Abuse Screening Last Done: 10/16/24 13:25
*ED- Fall Risk Assessment Last Done: 10/16/24 11:18
*ED COVID-19 Vaccine History Last Done: 10/16/24 11:18
*Nursing Disposition Last Done: 10/16/24 16:14
ED-EENT Assessment Last Done: 10/16/24 11:18
ED- Pulmonary Assessment Last Done: 10/16/24 11:18
Discharge Date and Time
Discharge Date/Time: 10/16/24 16:00
Print Language: CYMRO
[2024-10-16] MEDS: NSS 500 IV (14:57)
[2024-10-16] MEDS: DECADRON 6 MG IV (14:57)
[2024-10-16 15:00] VITALS: BP 172/75
--- NOTE | 2024-10-16 16:12 | EDRN ---
Reviewed discharge instructions with patient. Verbalized understanding. Ambulated with steady gait to the lobby.
[2024-10-16 16:14] VITALS: BP 168/82
== END 2024-10-16 16:00 | disposition home or self-care (01) ==
LOC: EMR 10:32
PROVIDERS: Physician Assistant; EMERGENCY PHYSICIAN Student in an Organized Health Care Education/Training Program; FAMILY PHYSICIAN Family Medicine
DX: J04.0 Acute laryngitis (principal); R13.10 Dysphagia, unspecified; R03.0 Elevated blood-pressure reading, without diagnosis of hypertension; E03.9 Hypothyroidism, unspecified; E78.00 Pure hypercholesterolemia, unspecified; Z85.42 Personal history of malignant neoplasm of other parts of uterus; Z86.73 Personal history of transient ischemic attack (TIA), and cerebral infarction without residual deficits; Z79.82 Long term (current) use of aspirin; Z88.8 Allergy status to other drugs, medicaments and biological substances
CPT/HCPCS: 99284; 96361; 96374; 70491; 80053; 85025; Q9967

== ENCOUNTER 2024-10-19 07:19 | Inpatient (IN) | payer MEDICARE, SELFPAY ==
[2024-10-19] VITALS (16 sets, daily range): BP systolic 147–184; BP diastolic 66–90; PULSE 58–87; BMI 23.0; BMI 22.2
[2024-10-19 01:33] LABS: % Immature Granulocytes 0.3 % (0-0.5); % Lymphocytes 26.2 % (20.5-51.1); % Monocytes 12.4 % (1.7-9.3); % Neutrophils 61.1 % (42.2-75.2); Absolute Lymphocytes 1.7 10^3/uL (1.2-3.4); Absolute Monocytes 0.8 10^3/uL (0.1-0.6); Hematocrit 30.5 % (37.0-47.0); Hemoglobin 10.5 g/dL (12.0-16.0); Mean Corp Hgb Conc. 34.4 g/dL (33.0-37.0); Mean Corpuscular Hgb 27.9 pg (27.0-31.0); Mean Corpuscular Volume 80.9 fL (81.0-99.0); Mean Platelet Volume 10.2 fL (7.4-10.4); Nucleated Red Blood Cells % 0 %; Platelet Count 331 10^3/uL (130-400); Red Blood Cell Count 3.77 10^6/uL (4.20-5.40); Red Cell Dist. Width 13.8 % (11.5-14.5); White Blood Cell Count 6.5 10^3/uL (4.8-10.8)
[2024-10-19 01:53] LABS: ALT (SGPT) 22 U/L (0-35); AST (SGOT) 30 U/L (14-36); Albumin 4.1 g/dl (3.5-5.0); Alkaline Phosphatase 86 U/L (38-126); Blood Urea Nitrogen 45 mg/dl (7-17); Calcium 9.6 mg/dl (8.4-10.2); Carbon Dioxide 21 mmol/L (22-30); Chloride 110 mmol/L (98-107); Glucose 122 mg/dl (70-99); Sodium 141 mmol/L (135-145); Total Bilirubin 0.5 mg/dl (0.2-1.3); Total Protein 6.4 g/dl (6.3-8.2)
[2024-10-19] MEDS: NSS 500 IV (02:55)
[2024-10-19] MEDS: PROTONIX IV 80 MG IV (02:55)
--- NOTE | 2024-10-19 03:43 | ED.GENMED ---
History of Present Illness
General
Chief Complaint: Rectal Bleeding
Source: patient and spouse
Exam Limitations: none
Time Seen by Provider: 10/19/24 01:57
Nursing documentation reviewed up to this point in time: agreed with
History of Present Illness
History of Present Illness:
79-year-old female with past medical history of previous stroke hypertension hyperlipidemia, GERD presenting to the emergency department today for concerns of dark red and black stool with a bowel movement prior to arrival. No abdominal pain no
lightheadedness denies any history of GI bleeding not on blood thinners.
Past History
Past History
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
ED Past Surgical History: Gynecological (hysterectomy, cancer resection and radiation)
Social History
Tobacco: Non-smoker
Alcohol: Occasional
Drug: None
Personal:
Living: with family
Family History
Family History: Other (reviewed and non-contributory)
Review of Systems
Review of Systems
Allergies reviewed?: Yes
All Other Systems: ROS reviewed and negative except as documented in HPI and ROS
Phy Exam
Physical Exam
Physical Exam:
GENERAL: Alert , in no apparent distress
EYE: pupils equal and reactive
NECK: Supple, no significant adenopathy.
ENT: o/p clr, mmm.
CARDIAC: Regular rate and rhythm .
LUNGS: Clear breath sounds bilaterally, no acute respiratory distress, no wheezes/rales/rhonchi
ABDOMEN: Soft, without focal tenderness, no r/g, no cvat
Rectal: Mixture of black and red stool
NEUROLOGICAL: Alert and oriented, no focal neuro deficits
SKIN: Warm and dry, skin intact.
MUSCULOSKELETAL: No edema, well perfused.
PSYCH: Normal and appropriate interaction.
Course
Orders/Labs/Results
Orders:
Orders
10/19/24 01:25
CMP [Comprehensive Metabolic Panel] Urgent
Complete Blood Count/With Diff Urgent
10/19/24 02:34
0.9% Sodium Chloride 500 ml [Nss] 500 ml IV BOLUS
Pantoprazole [Protonix IV] 80 mg IV NOW STA
10/19/24 02:38
Type+Screen Urgent
Abnormal Lab Results
10/19/24
01:25
RBC 3.77 L 10^6/uL
(4.20-5.40)
Hgb 10.5 L g/dL
(12.0-16.0)
Hct 30.5 L %
(37.0-47.0)
MCV 80.9 L fL
(81.0-99.0)
Absolute Monos (auto) 0.8 H 10^3/uL
(0.1-0.6)
Monocytes % 12.4 H %
(1.7-9.3)
Chloride 110 H mmol/L
(98-107)
Carbon Dioxide 21 L mmol/L
(22-30)
BUN 45 H mg/dl
(7-17)
Glucose 122 H mg/dl
(70-99)
10/19/24 01:25
10/19/24 01:25
Vital Signs
Initial and Last Documented VS:
Initial Vital Signs
Temp Pulse Resp BP Pulse Ox
97.9 F 77 18 165/84 98
10/19/24 01:08 10/19/24 01:08 10/19/24 01:08 10/19/24 01:08 10/19/24 01:08
Last Documented Vital Signs
Temp Pulse Resp BP Pulse Ox
97.9 F 68 15 183/75 99
10/19/24 01:08 10/19/24 02:45 10/19/24 02:45 10/19/24 02:09 10/19/24 02:45
MDM/Problems Addressed
MDM/Problems Addressed:
79-year-old female presenting to the emergency department today for concerns of dark red and black stool today. No abdominal pain abdomen is soft blood pressure elevated otherwise vital signs are normal. On rectal examination there is a moderate
amount of red blood as well as black stool. Concern for significant GI bleed possibly upper GI bleed. Given dose of Protonix given fluids. Patient not on blood thinners. Plan to admit for monitoring and GI assessment
*Critical Care Note
Total Time (30-74mins, 75-104mins- exclusive of procedures): Not Applicable
ED Attending Note
-
Portions of this chart may have been created with voice recognition software.� Occasional wrong word or��sound alike� substitutions may have occurred due to the inherent limitations of voice recognition software.
Discharge Plan
Departure
Patient Disposition: Admit
Date of Disposition: 10/19/24
Time of Disposition: 03:46
Admit to: Med/Surg
Admit to doctor: John
Presentation/result/management discussed w/ accepting MD/DO: Hospitalist
Patient with high blood pressure during this ER visit?: No
Condition: Good
Covid-19: Not Applicable
Discharge Problem:
GI bleed
Prescriptions:
No Action
levothyroxine 100 MCG tablet
100 mcg PO HS
cyanocobalamin (vitamin B-12) 1,000 MCG tablet
1,000 mcg PO DAILY
cholecalciferol (vitamin D3) 1,000 UNITS tablet
1,000 units PO DAILY
multivitamin with folic acid [Tab-A-Milla] 1 TABLET tablet
1 tab PO DAILY
aspirin 81 MG tablet,chewable
81 mg PO DAILY Qty: 30 0RF
Rx Instructions:
take with plavix x 21 days then cont aspirin alone
lisinopril capsule
20 mg PO HS
simvastatin capsule
20 mg PO HS
cephalexin 500 mg capsule
500 mg PO BID 10 Days Qty: 20 0RF
prednisone 20 mg tablet
20 mg PO DAILY 4 Days Qty: 4 0RF
Interventions
Interventions:
*Risk Screen - Suicide Last Done: 10/19/24 01:08
*General Assessment Last Done: 10/19/24 02:06
*Neglect/Abuse Screening Last Done: 10/19/24 02:06
*ED- Fall Risk Assessment Last Done: 10/19/24 02:06
*ED COVID-19 Vaccine History Last Done: 10/19/24 02:06
[place] Assessment Last Done: 10/19/24 02:10
ED- Cardiac Assessment Last Done: 10/19/24 02:10
ED- Pulmonary Assessment Last Done: 10/19/24 02:10
Discharge Date and Time
Print Language: TAJIK
--- NOTE | 2024-10-19 05:53 | HPS.HSE ---
Family Physician
-
Family Physician: NOT KNOW UNKNOWN - PT DOES
Chief Complaint
-
Bright red blood per rectum
History of Present Illness
This is a 79-year-old female was past medical history significant for CVA, CKD, hypothyroid, prior history of GI bleed with CT scan at that time showing diverticulosis, patient treated with Protonix and did not receive the scope as [place].
Spontaneously now presenting to the emergency department with episode of bright red blood per rectum.
Patient reported that she had evaluation for throat swelling and pain about 2 days ago. She was diagnosed with laryngitis with significant laryngeal edema. She had no abscess. She was started on prednisone 20 mg daily. She had taking 2 days of
the prednisone. She also takes aspirin 81 mg for prior history of CVA. Patient reported that she has not had any abdominal pain nausea or vomiting. She has not been seeing any dark stools or melena.
She went to use the commode and when she got up she saw blood dripping from her rectal area. There was no associated pain. She denies feeling dizzy or lightheaded. She denied any recent constipation.
In the emergency department she was normotensive with a blood pressure of 162/80 pulse of 62 and she was at 90% on room air. Hemoglobin was 10.5, it was 10.8 few days ago and 11.5 in July. MCV 80. Platelet counts are normal. She has normal
electrolytes BUN and creatinine. BUN slightly elevated at 45. Glucose was normal at 122.
Medical History
Past Medical History
Past Medical History: Reports Other (diverticulosis, uterine cancer status post hysterectomy, hypothyroidism, anxiety, CVA in 2020, hyperlipidemia, urinary incontinence )
Past Surgical History: Reports Other (Gynecological (hysterectomy))
Social History
Tobacco: Non-smoker
Alcohol: Occasional
Drug: None
Family History
Family History: Not pertinent
Allergies / Home Medications
Allergies reflects when Allergies were last updated in [facility].
Home Medications with original date entered in [facility]
Allergy/Medication List:
Allergies
Allergy/AdvReac Type Severity Reaction Status Date / Time
terfenadine [From [facility]] Allergy Unknown Verified 06/21/22 18:27
Home Medications
Fluticasone Propionate 50 MCG/ACT 2 sprays twice daily Nasally Twice a day for 7 days Oct, Active
Aspirin 81 MG 1 tablet Orally Once a day Active
Lisinopril 20 MG take 1 tablet by mouth once daily for 90 Active
Multi Vitamin Active
Vitamin B12 1000 MCG 1 tablet Orally Once a day Active
Simvastatin 40 MG 1 tablet in the evening Orally Once a day for 90 days Active
Vitamin D3 25 MCG (1000 UT) 1 capsule Orally Once a day Active
Levothyroxine Sodium 100 MCG 1 tablet in the morning on an empty stomach Orally Once a day Active
Review of Systems
-
History Source: Patient
Constitutional: Reports No Symptoms
EENT: Reports No Symptoms
Respiratory: Reports No Symptoms
Cardiac: Reports No Symptoms
Abdomen/GI: Reports Bloody Stools
: Reports No Symptoms
Musculoskeletal: Reports No Symptoms
Skin: Reports No Symptoms
Neurological: Reports No Symptoms
Endocrine: Reports No Symptoms
Hematologic/Lymphatic: Reports No Symptoms
Psych: Reports No Symptoms
Physical Exam
Vital Signs
Vital Signs
Temp Pulse Resp BP Pulse Ox
97.9 F 67 17 162/68 99
10/19/24 01:08 10/19/24 05:15 10/19/24 05:15 10/19/24 05:00 10/19/24 05:15
Physical Exam
General: Well Developed, Well Nourished, No Apparent Distress and Comfortable
HEENT: NormoCephalic, Anicteric, Moist mucous membranes and Atraumatic
Respiratory: Clear
Cardiac: S1/S2 and Regular Rhythm
Breast: Deferred by me
GI: Soft, Non Tender, Non Distended and Normal Bowel Sounds
Rectal: Red and Other (Mixed rate and black stool seen by ED)
Genito-urinary: Deferred by me
Musculoskeletal: No Clubbing, No Cyanosis and No Edema
Skin: Warm
Neuro: AO x 3 and Nonfocal/grossly intact
Hematologic/Lymphatic: No Lymphadenopathy
Psych: Calm
Laboratory Results
-
10/19/24 01:25
10/19/24 01:25
Laboratory Results
Total Bilirubin 0.5 mg/dl (0.2-1.3) 10/19/24:25
AST 30 U/L (14-36) 10/19/24:
ALT 22 U/L (0-35) 10/19/24:25
Alkaline Phosphatase 86 U/L (38-126) 10/19/24:25
Data Reviewed
-
Lab Data: Labs Reviewed by me
Old Records: Reviewed
Impression/Plan
-
IMPRESSION:
This is a 79-year-old female with past medical history significant for CVA and a prior GI bleed in 2021 diastolic continuously presenting to the emergency department with bright red blood per rectum. She had been on prednisone for 2 days for
laryngitis with significant throat edema, she is also taking aspirin for history of CVA. Patient reports acute episode of bright red blood per rectum. She denies any recent melena, abdominal pain, nausea vomiting or coffee-ground emesis. She is
hemodynamically stable. Hemoglobin is stable at 10.5. MCV slightly low at 80.
PLAN:
GI Bleed - Suspect lower gi bleed likely diverticular based on patient description and seeing red blood and prior history
- admit to telemetry
- clear liquids
- continue iv ppi bid for now empirically
- type and screen
- h7=&h q 8
- hold asa
- can finish her steroid course
- GI consultation
- hold lisinopril for now
DVT PPX - SCDs
Code Status - Full Code
--- NOTE | 2024-10-19 08:24 | CON.GI ---
Addendum entered and electronically signed by Matty Lopes DO 10/19/24 18:22:
I saw and examined the patient.
The BATTERBOARD SETTER's note was reviewed and I agree with the note.
Comment: Ms Sewell is a 79 y.o female with past medical as listed below who presented with new onset hematochezia. Reports a prior history of GI bleeding in the past several years ago with a similar presentation (reports that it was either
diverticular versus hemorrhoidal ?), however no colonoscopy was performed. Last colonoscopy around [id number] where she was found to have diverticulosis and polyps. Additionally, notes chronic dysphagia as well with known esophageal strictures s/p
previous endoscopic dilations in the past (no recent prior endoscopic records available). Additionally, notes taking significant NSAIDs/steroids along with ASA for sinusitis and URI symptoms. Otherwise, no other abdominal pain, nausea/vomiting or
unintentional weight loss. Etiology of patient's hematochezia seems most suspicious for a diverticular hemorrhage versus hemorrhoids versus colonic AVMs. Cannot exclude a bleeding polyp/lesion but less likely. Although patient reports NSAIDs and
recent steroids, doubt brisk UGIB based on her hemodynamics and improved Hgb on repeat labs this afternoon and without any prior melena. Suspect her mildly elevated BUN related to hypovolemia given her reported poor p.o intake given her previous URI
symptoms and chronic dysphagia rather than a brisk UGIB. Regardless, she would still benefit from an EGD given her acute on chronic dysphagia along with a colonoscopy this admission for her suspected LGIB. Okay to start CLD along with trending
serial H/h while inpatient. If recurrent large volume hematochezia or HD-instability, would obtain a stat CTA in attempts of localization and consult IR if a (+) colonic source is found. Furthermore, given her dysphagia and adenopathy would consider
pursuing further CT imaging of the chest over the weekend as well prior to endoscopic evaluation as unable to locate prior recent endoscopic records. See rest of care as outlined below.
Discussed with both patient and patient's this evening. GI team will continue to follow.
Original Note:
Consultation
-
Date/Time Consultation Requested: 10/19/24 0720
Date/Time Consultation Performed: 10/19/24 0857
Requesting Provider: mark Lopez MD
Performing Provider: EDUAR Escobedo Bryan Stone DO
Reason for Consultation: rectal bleeding
Medical History
Chief Complaint / HPI
Chief Complaint: Rectal bleeding
History of Present Illness:
77-year-old female history of diverticulosis, uterine cancer status post hysterectomy/XRT, hypothyroidism, anxiety, diverticulosis, colon polyps ?, esophageal stricture with prior dilation CVA on aspirin presents with onset of rectal bleeding. In
review with patient she admits to recent cold symptoms. She did take a Ibuprofen and steroids along with daily ASA last week but has sore throat and congestion. She also admits to onset of dysphagia with symptoms. She hx longstanding dysphagia
with prior esophageal dilation. Pt did not recall last ? in [place] but had dilation at in 2007 with benign stricture with 03-15-14 dilation bx with no dysplasia/metaplasia rare eosinophils. Her symptoms are worse than with prior dilation as
she also has reguritation of food with eating over last week. She admits symptoms are with solid and liquids. Pt also with complaints of rectal bleeding. She states it started at midnight with sense of blood dripping out. She continued with
bleeding on admission. She denies issues with abdominal pain, diarrhea, constipation. Hx GI bleeding 2021 diverticular vs hemorrhoids. No scope completed. She reported prior colonoscopy at [facility] around [id number] reported diverticulosis and
polyps. She did have colonoscopy [address] Freddy asif. On admission hbg 10.5 with BUN 45. Pt with recent CT neck this week with Mild bilateral cervical lymphadenopathy. Stable Mild acute sphenoid sinusitis. Improved, DDD
Past Medical History
Past Medical History: Cancer (Uterine CA/XRT), CVA, Hypercholesterolemia, Hypothyroidism, Psychiatric (Anxiety) and Other (Urinary incontinence, esophageal stricture, diverticulosis, colon polyps ? )
Past Surgical History: Gynecological (Hysterectomy)
Social History
Tobacco: Non-Smoker
Alcohol: Occasional (rare)
Drug: None
Personal:
Living: With Family
Employment: Retired
Family History
Family History: Other (no family hx colon CA or polyps)
Allergies / Home Medications
Allergy/AdvReac Type Severity Reaction Status Date / Time
terfenadine [From S[place]] Allergy Unknown Verified 10/19/24 02:06
�Medication �Instructions �Recorded
levothyroxine 100 mcg tablet 100 mcg PO HS Thyroid 04/20/20
simvastatin 40 mg tablet (Zocor) 40 mg PO HS ##0 06/21/22
aspirin 81 mg tablet,delayed 81 mg PO QPM 10/19/24
release
lisinopril 20 mg tablet 20 mg PO QPM 10/19/24
prednisone 20 mg tablet 20 mg PO DAILY 10/19/24
therapeutic multivitamin 1 tab PO DAILY 10/19/24
Review of Systems
-
History Source: Patient and Family
Constitutional: Reports No Symptoms
EENT: Reports Other (dysphagia with solid and liquid with regurgitation, recent sore throat )
Respiratory: Reports No Symptoms
Cardiac: Reports No Symptoms
Abdomen/GI: Reports Bloody Stools (dark burgundy stool)
: Reports No Symptoms
Musculoskeletal: Reports No Symptoms
Skin: Reports No Symptoms
Neurological: Reports Weakness
Endocrine: Reports No Symptoms
Hematologic/Lymphatic: Reports Bleeding
Vital Signs
Temp Pulse Resp BP Pulse Ox
97.9 F 54 15 154/66 97
10/19/24 08:03 10/19/24 07:30 10/19/24 07:30 10/19/24 07:00 10/19/24 07:30
Physical Exam
Exam
General: Well Developed, Well Nourished and No Apparent Distress
HEENT: Normocephalic
Respiratory: Clear
Cardiac: Other (bradicardia )
GI: Soft, Non Tender and Non Distended
Rectal: Other (large volume dark burgundy liquid with some dark stool)
Musculoskeletal: No Clubbing and No Cyanosis
Skin: Warm and Dry
Neuro: Awake, Alert and Oriented
Psych: Calm
Results
WBC 6.5 10^3/uL (4.8-10.8) 10/19/24:25
Hgb 10.5 g/dL (12.0-16.0) L 10/19/24:
Hct 30.5 % (37.0-47.0) L 10/19/24:25
MCV 80.9 fL (81.0-99.0) L 10/19/24:25
Plt Count 331 10^3/uL (130-400) D 10/19/24:25
Absolute Neuts (auto) 4.0 10^3/uL (1.4-6.5) 10/19/24:25
Sodium 141 mmol/L (135-145) 10/19/24:
Potassium 4.0 mmol/L (3.5-5.1) 10/19/24:25
Chloride 110 mmol/L (98-107) H 10/19/24:25
Carbon Dioxide 21 mmol/L (22-30) L 10/19/24:25
BUN 45 mg/dl (7-17) H 10/19/24:25
Creatinine 1.0 mg/dL (0.6-1.0) 10/19/24:
Calcium 9.6 mg/dl (8.4-10.2) 10/19/24:25
Total Bilirubin 0.5 mg/dl (0.2-1.3) 10/19/24:
AST 30 U/L (14-36) 10/19/24:25
ALT 22 U/L (0-35) 10/19/24:25
Alkaline Phosphatase 86 U/L (38-126) 10/19/24:25
Diagnostic Image Results:
10/16/24 CT Neck With Iv Contrast
Mild bilateral cervical lymphadenopathy. Stable
Mild acute sphenoid sinusitis. Improved
Multilevel degenerative disc disease. Otherwise unremarkable exam. Stable
07/2024 CT Abd/pelvis W Iv Cont
1). There is hazy concentric wall thickening of the urinary bladder suggesting cystitis.
2). There is cholelithiasis
3). Hepatic and renal cysts
4). Hysterectomy with bilateral pelvic lymph node dissection
Prior GI Procedures:
EGD: prior [facility] ? last [address] Booker benign stricture with 03-15-14 dilation bx with no dysplasia/metaplasia rare eosinophils.
Colonoscopy: ? [facility] [id number] Hayes with diverticulosis
Assessment / Plan
-
77-year-old female history of diverticulosis, uterine cancer status post hysterectomy/XRT, hypothyroidism, anxiety, esophageal stricture with prior dilation, diverticulosis, colon polyp ?, CVA on aspirin presents with onset of rectal bleeding. In
review with patient she admits to recent cold symptoms. She did take a Ibuprofen/steroids along with ASA last week but has sore throat and congestion. She also admits to onset of dysphagia with symptoms with hx longstanding dysphagia with prior
esophageal dilation. Pt did not recall last ? in [place] but had dilation at in 2007. She is also noted with onset of rectal bleeding. Hx GI bleeding 2021 diverticular vs hemorrhoids. No scope completed. She reported prior colonoscopy at
[facility] around [id number] reported diverticulosis and polyps. She did have colonoscopy [address] Hayes diverticulosis. On admission hbg 10.[address] neck this week with Mild bilateral cervical lymphadenopathy. Stable Mild
acute sphenoid sinusitis. Improved, DDD
-rectal bleeding - passing burgundy stools
-onset of dysphagia with recent severe sore throat
-hx prior esophageal dilation -- dilated 2007 at 03-15-14 ? repeated at [facility] after that time
-anemia
-mild BUN elevation
-recent cold symptoms
-CT neck with mild b/l cervical lymphadenopathy
other med problems:
-diverticulosis
-hx colon polyps
-hypothyroidism
-anxiety
pLAN:
etiology of rectal bleeding related to upper- PUD (mild BUN elevation on ASA and prednisone prior to admission), lower vs SB bleed- diverticular as painless bleeding vs radiation related vs other
pt with sense of blood dripping out but noted dark burgundy color on exam doubt hemorrhoidal source
with dysphagia will review with Dr. lopes for EGD and timing
cont NPO for now
if large volume stools consider CTA
can also consider CT chest with dysphagia and cervical adenopathy on CT neck
trend hbg transfuse as needed will repeat now to decide on need for EGD today
will follow
-
-
Thank you for consultation and allowing me to participate in the patient's care. Please call the conveyor line bakery worker GI physician during the after hours with any questions or concerns.
[2024-10-19] MEDS: DELTASONE 20 MG PO (08:37)
--- NOTE | 2024-10-19 10:39 | W.PN.UPDATE ---
Update Note
Progress Note Update
Seen and admitted by Dr. Lopez this morning.
Admitted for bright red blood per rectum. She is hemodynamically stable. She is without abdominal pain. Abdomen is soft. H&H stable from recent lab work. Await GI input.
Continue the current treatment plan.
[2024-10-19 11:30] LABS: Hematocrit 34.6 % (37.0-47.0); Hemoglobin 11.6 g/dL (12.0-16.0); Mean Corp Hgb Conc. 33.5 g/dL (33.0-37.0); Mean Corpuscular Hgb 27.5 pg (27.0-31.0); Mean Platelet Volume 9.9 fL (7.4-10.4); Platelet Count 340 10^3/uL (130-400); Red Blood Cell Count 4.22 10^6/uL (4.20-5.40); Red Cell Dist. Width 13.7 % (11.5-14.5); White Blood Cell Count 7.3 10^3/uL (4.8-10.8)
[2024-10-19 11:37] LABS: INR 0.96; PT 13.1 Sec (11.4-14.6)
[2024-10-19] MEDS: NSS 1000 IV ×2 (11:37→23:58)
[2024-10-19 11:54] LABS: Blood Urea Nitrogen 36 mg/dl (7-17); Calcium 9.4 mg/dl (8.4-10.2); Carbon Dioxide 25 mmol/L (22-30); Chloride 106 mmol/L (98-107); Estimated Creatinine Clearance 41 ml/min; Glucose 103 mg/dl (70-99); Potassium 4.1 mmol/L (3.5-5.1); Sodium 142 mmol/L (135-145); eGFR > 60.00
--- NOTE | 2024-10-19 16:55 | PTCARENOTE ---
Pt. arrived from ED around 1600. Pt. walked from stretcher to the room, weight obtained. Pt. oriented to room, nursing assessment complete. Pt. with complaints of dypagia for the past couple of days, swallow screen complete with a passing result
from the patient. GI notified pt. arrived on the floor, will come up to discuss plan. Will continue with ongoing plan of care.
[2024-10-19] MEDS: ZESTRIL 20 MG PO (21:14)
[2024-10-19] MEDS: LIPITOR 10 MG PO (21:14)
[2024-10-19] MEDS: PROTONIX IV 40 MG IV (21:14)
[2024-10-19] MEDS: SYNTHROID 100 MCG PO (21:14)
[2024-10-19] MEDS: NSS (PRESERVATIVE FREE) 10 ML IV (21:15)
[2024-10-19] MEDS: FLUSH (NSS) 1 FLUSH IV (21:15)
[2024-10-20] VITALS (7 sets, daily range): BP systolic 144–173; BP diastolic 67–83; PULSE 60–81
[2024-10-20 06:34] LABS: Hemoglobin 9.3 g/dL (12.0-16.0); Mean Corp Hgb Conc. 34.4 g/dL (33.0-37.0); Mean Corpuscular Hgb 27.5 pg (27.0-31.0); Mean Corpuscular Volume 79.9 fL (81.0-99.0); Mean Platelet Volume 10.1 fL (7.4-10.4); Platelet Count 280 10^3/uL (130-400); Red Blood Cell Count 3.38 10^6/uL (4.20-5.40); Red Cell Dist. Width 13.5 % (11.5-14.5); White Blood Cell Count 4.9 10^3/uL (4.8-10.8)
[2024-10-20 06:56] LABS: Blood Urea Nitrogen 29 mg/dl (7-17); Calcium 8.9 mg/dl (8.4-10.2); Carbon Dioxide 24 mmol/L (22-30); Chloride 112 mmol/L (98-107); Estimated Creatinine Clearance 41 ml/min; Glucose 85 mg/dl (70-99); Sodium 141 mmol/L (135-145); eGFR > 60.00
[2024-10-20] MEDS: PROTONIX IV 40 MG IV ×2 (08:34→20:13)
[2024-10-20] MEDS: DELTASONE 20 MG PO (08:34)
[2024-10-20] MEDS: NSS (PRESERVATIVE FREE) 10 ML IV ×2 (08:35→20:13)
--- NOTE | 2024-10-20 09:36 | W.PN.GI.CBS2 ---
Today's Communication / Plan
-
No signs of recurrent GI bleeding overnight and this AM. Continue to trend serial H/h and transfuse as needed. Obtain CT Chest last today and start gentle prep over weekend. Plan for EGD/Colon on Tuesday, 10/22. See rest of care as outlined below.
Assessment / Plan
-
Ms Sewell is a 77-year-old female history of diverticulosis, uterine cancer status post hysterectomy/XRT, hypothyroidism, anxiety, esophageal stricture with prior dilation, diverticulosis, colon polyp ?, CVA on aspirin presents with onset of
rectal bleeding. In review with patient she admits to recent cold symptoms. She did take a Ibuprofen/steroids along with ASA last week but has sore throat and congestion. She also admits to onset of dysphagia with symptoms with hx longstanding
dysphagia with prior esophageal dilation. Pt did not recall last ? in [place] but had dilation at in 2007. She is also noted with onset of rectal bleeding. Hx GI bleeding 2021 diverticular vs hemorrhoids. No scope completed. She reported
prior colonoscopy at [place] around [id number] reported diverticulosis and polyps. She did have colonoscopy [address] Freddy asif. On admission hbg 10.[address] neck this week with Mild bilateral cervical
lymphadenopathy. Stable Mild acute sphenoid sinusitis. Improved, DDD.
#Painless Hematochezia c/f #LGIB
#Acute Blood Loss Anemia
#Hx of Acute on Chronic Dysphagia (s/p previous endoscopic dilations, in 2013 at [place])
#Sinusitis #URI Symptoms #CT Neck Cervical Lymphadenopathy
#NSAID/Steroid Use
Impression: Patient presenting with multiple episodes of painless hematochezia concerning for a LGIB. Notes a prior history of GI bleeding in the past several years ago with a similar presentation (reports that it was either diverticular versus
hemorrhoidal ?), however no colonoscopy was performed. Last colonoscopy around where she was found to have diverticulosis and polyps. Additionally, notes chronic dysphagia as well with known esophageal strictures s/p previous endoscopic
dilations in the past (no recent prior endoscopic records available). Additionally, notes taking significant NSAIDs/steroids along with ASA for sinusitis and URI symptoms. Otherwise, no other abdominal pain, nausea/vomiting or unintentional weight
loss. Etiology of patient's hematochezia seems most suspicious for a diverticular hemorrhage versus hemorrhoids versus colonic AVMs. Cannot exclude a bleeding polyp/lesion but less likely. Although patient reports NSAIDs and recent steroids, doubt
brisk UGIB based on her hemodynamics and improved Hgb on repeat labs this afternoon and without any prior melena. Suspect her mildly elevated BUN related to hypovolemia given her reported poor p.o intake given her previous URI symptoms and chronic
dysphagia rather than a brisk UGIB. Regardless, she would still benefit from an EGD given her acute on chronic dysphagia along with a colonoscopy this admission for her suspected LGIB. Okay to start CLD along with trending serial H/h while
inpatient. If recurrent large volume hematochezia or HD-instability, would obtain a stat CTA in attempts of localization and consult IR if a (+) colonic source is found. Furthermore, given her dysphagia and adenopathy would consider pursuing further
CT imaging of the chest over the weekend as well prior to endoscopic evaluation as unable to locate prior recent endoscopic records.
Recommendations:
- Continue CLD over weekend
- Will obtain CT Chest w/ both IV and oral contrast given her dysphagia and adenopathy although may be from URI/sinusitis (as unable to obtain barium esophagram over weekend)
- Trend Hgb with serial CBC, slight drift in Hgb and possibly dilutional as without any signs of overt GI bleeding over past 24 hrs since admission
- Repeat CBC this afternoon. Transfuse for goal Hgb > 7.0
- Empiric IV PPI 40 mg BiD given her recent NSAIDs/steroids but low concern for brisk UGIB and would still continue given her dysphagia as well
- Will start gentle prep this afternoon with Miralax 238 grams today and tomorrow if patient is able to tolerate
- Plan to perform both an EGD and Colonoscopy on Tuesday, 10/22, for further evaluation of her dysphagia, anemia and hematochezia
- If brisk/recurrent large volume hematochezia, significant drop in Hgb or HD-instability would obtain stat CTA over weekend in attempts of localization
- Strict avoidance of all NSAIDs
- Rest of care as per primary team
Discussed with primary internal medicine team this AM. GI will continue to follow.
Subjective
Subjective
Date of Service: October 20, 2024
- Hgb 10.5 -> 11.6 -> 9.3
- Otherwise, no acute events overnight
Feeling well this AM, denies any further bloody and/or dark stools overnight or this AM. Tolerating CLD without difficult and notes improving dysphagia although still present and hesitant if she can tolerate a prep. Otherwise, continues to deny any
abdominal pain, nausea or vomiting.
Objective
Data Reviewed
Laboratory Data:
Laboratory Results
10/20/24 06:27
10/20/24 06:27
Laboratory Results
PT 13.1 Sec (11.4-14.6) 10/19/24 10:52
INR 0.96 10/19/24 10:52
Total Bilirubin 0.5 mg/dl (0.2-1.3) 10/19/24 01:25
AST 30 U/L (14-36) 10/19/24 01:25
ALT 22 U/L (0-35) 10/19/24 01:25
Alkaline Phosphatase 86 U/L (38-126) 10/19/24 01:25
Vital Signs and I&O:
Vital Signs
Temp Pulse Resp BP Pulse Ox
98.0 F 60 18 156/76 98
10/20/24 07:28 10/20/24 07:28 10/20/24 07:28 10/20/24 07:28 10/20/24 07:28
I&O
10/19/24 10/20/24 10/21/24
06:59 06:59 06:59
Intake Total 1040 / 1040
Balance 1040 / 1040
Physical Exam
Physical Exam
HEENT: Anicteric and Moist mucous membranes
Cardiology: Normal Sinus Rhythm
Pulmonary: Other (Normal WOB on room air)
GI: Soft, Non Distended and Non Tender
Extremities: No Edema
Neuro: Non Focal
[2024-10-20] MEDS: NSS 1000 IV (13:28)
[2024-10-20] MEDS: OMNIPAQUE 50 ML PO (13:28)
[2024-10-20] MEDS: GAVILAX 238 GM PO (15:51)
--- NOTE | 2024-10-20 15:54 | W.PN.HOSP.TC ---
Today's Communication/Plan
-
Clears
Follow HH
EGD/[place] on Tuesday
Assessment / Plan
Assessment / Plan
IMPRESSION:
This is a 79-year-old female with past medical history significant for CVA and a prior GI bleed in 2021 diastolic continuously presenting to the emergency department with bright red blood per rectum. She had been on prednisone for 2 days for
laryngitis with significant throat edema, she is also taking aspirin for history of CVA. Patient reports acute episode of bright red blood per rectum. She denies any recent melena, abdominal pain, nausea vomiting or coffee-ground emesis. She is
hemodynamically stable. Hemoglobin is stable at 10.5. MCV slightly low at 80.
PLAN:
GI Bleed - Suspect lower gi bleed likely diverticular based on patient description and seeing red blood and prior history
- HD stable . HH initally stable and drop since yesterday noted . With no BM suspect diluational
- Appt GI input -for EGD/[place]
Primary HTN
- Resume lisinopril for now
Recent laryngitis - on steroids -last day tomorrow
BL cervical lymphadenopathy - mild and has been stable since 2020. Abdomen/Pelvis CT 07/2024 showed no generalized lymphadenopathy . Possible reactive to laryngitis - follow up after treatments
Hyperlipidemia -restart once GI issues are stable
Hypothyroidism -cw levothyroxine
DVT PPX - SCDs
Code Status - Full Code
Anticipated Discharge: > 48 hours
Subjective/Interval History
-
Date of Service: October 20, 2024
No further bowel movements or rectal bleeding
Denies any nausea vomiting or abdominal pain
Feels the sore throat has resolved but has hoarse voice still
Not SOB
Objective Data
-
Labs:
Laboratory Results
10/20/24
06:27
WBC 4.9
Hgb 9.3 L
Hct 27.0 L
Plt Count 280
Sodium 141
Potassium 4.0
Chloride 112 H
Carbon Dioxide 24
BUN 29 H
Creatinine 0.9
Glucose 85
Calcium 8.9
Vital Signs:
Vital Signs
Temp Pulse Resp BP Pulse Ox
97.8 F 66 18 158/80 97
10/20/24 14:44 10/20/24 14:44 10/20/24 14:44 10/20/24 14:44 10/20/24 14:44
I&O
10/19/24 10/20/24 10/21/24
06:59 06:59 06:59
Intake Total 1040 / 1040
Balance 1040 / 1040
Review of Systems
-
Constitutional: Denies Fever or Chills
Cardiac: Denies Chest Pain
Abdomen/GI: Denies Abdominal Pain
Neuro: Denies Dizzy
Physical Exam
-
General: No Apparent Distress
HEENT: Moist Mucous Membranes
Respiratory: Clear to Auscultation
Cardiac: Regular Rhythm and S1/S2
GI: Soft and Nontender
Neuro: AO x 3
Psych: Calm
Data Reviewed
-
Labs: Labs Reviewed by me
[2024-10-20] MEDS: ZESTRIL 20 MG PO (20:13)
[2024-10-20] MEDS: LIPITOR 10 MG PO (20:13)
[2024-10-20] MEDS: SYNTHROID 100 MCG PO (20:13)
[2024-10-20] MEDS: FLUSH (NSS) 1 FLUSH IV (20:13)
[2024-10-21 03:00] VITALS: BP 175/91
[2024-10-21] MEDS: APRESOLINE 5 MG IV ×2 (03:47→16:34)
--- NOTE | 2024-10-21 06:25 | W.PN.GI.CBS2 ---
Today's Communication / Plan
-
Obtain MRI/MRCP given gallbladder findings on CT imaging. Continue to prep if patient able to tolerate prep and keep NPO at NH for EGD/Colon tomorrow, 10/22. See rest of care as outlined below.
Assessment / Plan
-
Ms Sewell is a 77-year-old female history of diverticulosis, uterine cancer status post hysterectomy/XRT, hypothyroidism, anxiety, esophageal stricture with prior dilation, diverticulosis, colon polyp ?, CVA on aspirin presents with onset of
rectal bleeding. In review with patient she admits to recent cold symptoms. She did take a Ibuprofen/steroids along with ASA last week but has sore throat and congestion. She also admits to onset of dysphagia with symptoms with hx longstanding
dysphagia with prior esophageal dilation. Pt did not recall last ? in [place] but had dilation at in 2007. She is also noted with onset of rectal bleeding. Hx GI bleeding 2021 diverticular vs hemorrhoids. No scope completed. She reported
prior colonoscopy at [place] around reported diverticulosis and polyps. She did have colonoscopy [address] Freddy asif. On admission hbg 10.[address] neck this week with Mild bilateral cervical
lymphadenopathy. Stable Mild acute sphenoid sinusitis. Improved, DDD.
#Painless Hematochezia c/f #LGIB
#Acute Blood Loss Anemia w/out transfusions
#Hx of Acute on Chronic Dysphagia (s/p previous endoscopic dilations, in 2013 at [place])
#Sinusitis #URI Symptoms #CT Neck Cervical Lymphadenopathy
#NSAID/Steroid Use
Impression: Patient presenting with multiple episodes of painless hematochezia concerning for a LGIB. Notes a prior history of GI bleeding in the past several years ago with a similar presentation (reports that it was either diverticular versus
hemorrhoidal ?), however no colonoscopy was performed. Last colonoscopy around where she was found to have diverticulosis and polyps. Additionally, notes chronic dysphagia as well with known esophageal strictures s/p previous endoscopic
dilations in the past (no recent prior endoscopic records available). Additionally, notes taking significant NSAIDs/steroids along with ASA for sinusitis and URI symptoms. Otherwise, no other abdominal pain, nausea/vomiting or unintentional weight
loss. Etiology of patient's hematochezia seems most suspicious for a diverticular hemorrhage versus hemorrhoids versus colonic AVMs. Cannot exclude a bleeding polyp/lesion but less likely. Although patient reports NSAIDs and recent steroids, doubt
brisk UGIB based on her hemodynamics and improved Hgb on repeat labs this afternoon and without any prior melena. Suspect her mildly elevated BUN related to hypovolemia given her reported poor p.o intake given her previous URI symptoms and chronic
dysphagia rather than a brisk UGIB. Regardless, she would still benefit from an EGD given her acute on chronic dysphagia along with a colonoscopy this admission for her suspected LGIB. Okay to start CLD along with trending serial H/h while
inpatient. If recurrent large volume hematochezia or HD-instability, would obtain a stat CTA in attempts of localization and consult IR if a (+) colonic source is found. Furthermore, given her dysphagia and adenopathy would consider pursuing further
CT imaging of the chest over the weekend as well prior to endoscopic evaluation as unable to locate prior recent endoscopic records.
CT CAP 10/20/24- Impression: No esophageal dilatation. No apparent significant esophageal wall thickening; cholelithiasis with 2 cm gallstone along with progressive irregular slightly nodular gallbladder wall thickening and enhancement has developed
since prior examination. No associated pericholecystic inflammatory stranding or fluid. Although possibly inflammatory/cholecystitis (chronic more likely than acute, early neoplastic involvement cannot be entirely excluded) ; stable hepatic and
renal cysts ; no evidence of bowel obstruction, mild sigmoid diverticulosis without acute diverticulitis and constipation with mild to moderate colonic fecal burden
No further signs of recurrent GI bleeding this admission and Hgb remains stable without recent transfusions.
Recommendations:
- Continue CLD, keep NPO at [facility]
- Reviewed recent CT imaging with patient at bedside
- Would obtain MRI/MRCP WWO contrast as well further evaluation given gallbladder findings seen on CT imaging
- Continue empiric IV PPI 40 mg BiD
- Continue Miralax prep today if patient is able to tolerate given significant fecal burden on CT imaging
- Plan for EGD and Colonoscopy tomorrow, on 10/22, for further evaluation of her dysphagia, anemia and hematochezia
- If brisk/recurrent large volume hematochezia, significant drop in Hgb or HD-instability would obtain stat CTA over weekend in attempts of localization
- Strict avoidance of all NSAIDs
- Rest of care as per primary team
Discussed with primary internal medicine team this AM. GI will continue to follow.
Subjective
Subjective
Date of Service: October 21, 2024
- CT CAP 10/20/24- Impression: No esophageal dilatation. No apparent significant esophageal wall thickening; cholelithiasis with 2 cm gallstone along with progressive irregular slightly nodular gallbladder wall thickening and enhancement has
developed since prior examination. No associated pericholecystic inflammatory stranding or fluid. Although possibly inflammatory/cholecystitis (chronic more likely than acute, early neoplastic involvement cannot be entirely excluded ; stable hepatic
and renal cysts ; no evidence of bowel obstruction, mild sigmoid diverticulosis without acute diverticulitis and constipation with mild to moderate colonic fecal burden
- No signs of recurrent GI bleeding since admission
- Hgb 10.5 -> 11.6 -> 9.3, pending AM CBC
- Otherwise, no acute events overnight
Feeling well, resting comfortably and denies any further bloody stools or hematochezia. Had significant difficulty with miralax prep, frustrated this AM. Otherwise, denies any other abdominal pain or nausea/vomiting.
Objective
Data Reviewed
Laboratory Data:
Laboratory Results
PT 13.1 Sec (11.4-14.6) 10/19/24 10:52
INR 0.96 10/19/24 10:52
Total Bilirubin 0.5 mg/dl (0.2-1.3) 10/19/24 01:25
AST 30 U/L (14-36) 10/19/24 01:25
ALT 22 U/L (0-35) 10/19/24 01:25
Alkaline Phosphatase 86 U/L (38-126) 10/19/24 01:25
Vital Signs and I&O:
Vital Signs
Temp Pulse Resp BP Pulse Ox
98.6 F 76 14 175/91 99
10/21/24 03:00 10/21/24 03:00 10/21/24 03:00 10/21/24 03:00 10/21/24 03:00
I&O
10/19/24 10/20/24 10/21/24
06:59 06:59 06:59
Intake Total 1040 / 1040 1200 / 1200
Balance 1040 / 1040 1200 / 1200
Physical Exam
Physical Exam
HEENT: Anicteric and Moist mucous membranes
Pulmonary: Other (Normal WOB on room air)
GI: Soft, Non Distended and Non Tender
Extremities: Edema and No Edema
Neuro: Non Focal
[2024-10-21] MEDS: NSS (PRESERVATIVE FREE) 10 ML IV ×2 (07:16→20:32)
[2024-10-21] MEDS: PROTONIX IV 40 MG IV ×2 (07:17→20:32)
[2024-10-21 07:18] LABS: Hematocrit 34.2 % (37.0-47.0); Mean Corp Hgb Conc. 35.1 g/dL (33.0-37.0); Mean Corpuscular Hgb 27.7 pg (27.0-31.0); Mean Platelet Volume 9.8 fL (7.4-10.4); Platelet Count 347 10^3/uL (130-400); Red Blood Cell Count 4.33 10^6/uL (4.20-5.40); Red Cell Dist. Width 13.4 % (11.5-14.5); White Blood Cell Count 8.5 10^3/uL (4.8-10.8)
[2024-10-21] MEDS: FLUSH (NSS) 2 FLUSH IV (07:20)
[2024-10-21] MEDS: NSS 1000 IV ×2 (07:24→20:46)
[2024-10-21 07:30] VITALS: BP 131/59
[2024-10-21 08:20] LABS: Blood Urea Nitrogen 20 mg/dl (7-17); Calcium 9.4 mg/dl (8.4-10.2); Carbon Dioxide 21 mmol/L (22-30); Chloride 108 mmol/L (98-107); Estimated Creatinine Clearance 41 ml/min; Glucose 109 mg/dl (70-99); Potassium 3.3 mmol/L (3.5-5.1); Sodium 140 mmol/L (135-145); eGFR > 60.00
[2024-10-21 11:30] VITALS: BP 143/69
--- NOTE | 2024-10-21 14:16 | W.PN.HOSP.TC ---
Addendum entered and electronically signed by Angel Wade MD 10/21/24 14:22:
Hypokalemia -replete
Original Note:
Today's Communication/Plan
-
EGD/[place] in am
Follow HH
Assessment / Plan
Assessment / Plan
IMPRESSION:
This is a 79-year-old female with past medical history significant for CVA and a prior GI bleed in 2021 diastolic continuously presenting to the emergency department with bright red blood per rectum. She had been on prednisone for 2 days for
laryngitis with significant throat edema, she is also taking aspirin for history of CVA. Patient reports acute episode of bright red blood per rectum. She denies any recent melena, abdominal pain, nausea vomiting or coffee-ground emesis. She is
hemodynamically stable. Hemoglobin is stable at 10.5. MCV slightly low at 80.
PLAN:
GI Bleed - Suspect lower gi bleed likely diverticular based on patient description and seeing red blood and prior history
- HD stable . HH initally stable and drop since yesterday noted . With no BM suspect diluational
- Appt GI input -for EGD/[place] tomorrow
Primary HTN
- Resume lisinopril for now
Recent laryngitis - on steroids -last day 10/21 .Improved symptoms.
BL cervical lymphadenopathy - mild and has been stable since 2020. Abdomen/Pelvis CT 07/[address] C/A/P showed no generalized lymphadenopathy . Possible reactive to laryngitis - follow up after treatments
GB wall abnormality - Irregular slightly nodular gallbladder wall thickening and enhancement measuring up to 5 mm, which has progressed compared to prior examination. No associated pericholecystic inflammatory stranding or fluid. Cannot exclude
cholecystitis (chronic more likely than acute). Early neoplastic involvement cannot be entirely excluded. Clinically without abdo pain or RUQ tenderness .MRI abdomen per GI.
Hyperlipidemia -restart once GI issues are stable
Hypothyroidism -cw levothyroxine
DVT PPX - SCDs
Code Status - Full Code
Anticipated Discharge: 24 - 48 hours
Subjective/Interval History
-
Date of Service: October 21, 2024
No nausea vomiting. No abdominal pain. No further rectal bleeding.
Objective Data
-
Labs:
Laboratory Results
10/21/24 10/21/24
06:34 07:56
WBC 8.5
Hgb 12.0 D
Hct 34.2 L
Plt Count 347 D
Sodium Cancelled 140
Potassium Cancelled 3.3 L
Chloride Cancelled 108 H
Carbon Dioxide Cancelled 21 L
BUN Cancelled 20 H
Creatinine Cancelled 0.9
Glucose Cancelled 109 H
Calcium Cancelled 9.4
Vital Signs:
Vital Signs
Temp Pulse Resp BP Pulse Ox
97.9 F 92 16 143/69 99
10/21/24 11:30 10/21/24 11:30 10/21/24 11:30 10/21/24 11:30 10/21/24 11:30
I&O
10/20/24 10/21/24 10/22/24
06:59 06:59 06:59
Intake Total 1040 / 1040 1200 / 1200
Balance 1040 / 1040 1200 / 1200
Review of Systems
-
Constitutional: Denies Fever
EENT: Reports Sore Throat (Improved)
Respiratory: Denies Trouble Breathing
Cardiac: Denies Chest Pain
Abdomen/GI: Denies Abdominal Pain
Neuro: Denies Dizzy
Physical Exam
-
General: Comfortable
Respiratory: Non Labored Respirations; Negative Accessory Resp Muscle Use
Cardiac: Regular Rhythm and S1/S2
GI: Soft, Nontender, Nondistended and Normal Bowel Sounds
Neuro: AO x 3
Psych: Calm
Data Reviewed
-
Labs: Labs Reviewed by me
[2024-10-21] MEDS: KCL ELIXIR 40 MEQ PO (15:22)
[2024-10-21 16:00] VITALS: BP 185/96
[2024-10-21] MEDS: GAVILAX 238 GM PO (16:38)
[2024-10-21] MEDS: LIPITOR 10 MG PO (20:32)
[2024-10-21] MEDS: SYNTHROID 100 MCG PO (20:32)
[2024-10-21] MEDS: ZESTRIL 20 MG PO (20:33)
[2024-10-21 23:05] VITALS: BP 132/62
[2024-10-22] VITALS (12 sets, daily range): BP systolic 111–164; BP diastolic 59–87
[2024-10-22] MEDS: PROTONIX IV 40 MG IV ×2 (08:34→22:04)
[2024-10-22] MEDS: NSS (PRESERVATIVE FREE) 10 ML IV ×2 (08:34→22:04)
[2024-10-22 09:15] LABS: Hematocrit 30.4 % (37.0-47.0); Hemoglobin 10.3 g/dL (12.0-16.0); Mean Corp Hgb Conc. 33.9 g/dL (33.0-37.0); Mean Corpuscular Hgb 27.7 pg (27.0-31.0); Mean Corpuscular Volume 81.7 fL (81.0-99.0); Mean Platelet Volume 10.1 fL (7.4-10.4); Platelet Count 358 10^3/uL (130-400); Red Blood Cell Count 3.72 10^6/uL (4.20-5.40); Red Cell Dist. Width 13.6 % (11.5-14.5); White Blood Cell Count 7.8 10^3/uL (4.8-10.8)
[2024-10-22 09:37] LABS: Blood Urea Nitrogen 12 mg/dl (7-17); Calcium 8.9 mg/dl (8.4-10.2); Carbon Dioxide 23 mmol/L (22-30); Chloride 108 mmol/L (98-107); Estimated Creatinine Clearance 41 ml/min; Glucose 89 mg/dl (70-99); Potassium 3.7 mmol/L (3.5-5.1); Sodium 140 mmol/L (135-145); eGFR > 60.00
--- NOTE | 2024-10-22 12:45 | W.PN.HOSP.TC ---
Today's Communication/Plan
-
MRI pending
Post MRI monitor for diet tolerance
ivf in the interim
Assessment / Plan
Assessment / Plan
IMPRESSION:
This is a 79-year-old female with past medical history significant for CVA and a prior GI bleed in 2021 diastolic continuously presenting to the emergency department with bright red blood per rectum. She had been on prednisone for 2 days for
laryngitis with significant throat edema, she is also taking aspirin for history of CVA. Patient reports acute episode of bright red blood per rectum. She denies any recent melena, abdominal pain, nausea vomiting or coffee-ground emesis. She is
hemodynamically stable. Hemoglobin is stable at 10.5. MCV slightly low at 80.
PLAN:
GI Bleed - Suspect lower gi bleed likely diverticular
- HD stable . HH drop likely dilutional
- Status post endoscopy with stricture in esophagus status postbiopsy. Colonoscopy with fair prep suspect resolved diverticular hemorrhage.
-Will require repeat EGD with dilatation as outpatient. Avoid NSAIDs.
- NPO till MRI and then restart diet per GI as well esophageal stricture. IVF in the interim.
- If with any episode of repeat bleeding check CT angio of the abdomen pelvis. If positive will need IR input
Primary HTN
- Resume lisinopril for now
Recent laryngitis - on steroids -last day 10/21 .Improved symptoms.
BL cervical lymphadenopathy - mild and has been stable since 2020. Abdomen/Pelvis CT 07/[address] C/A/P showed no generalized lymphadenopathy . Possible reactive to laryngitis - follow up after treatments
GB wall abnormality - Irregular slightly nodular gallbladder wall thickening and enhancement measuring up to 5 mm, which has progressed compared to prior examination. No associated pericholecystic inflammatory stranding or fluid. Cannot exclude
cholecystitis (chronic more likely than acute). Early neoplastic involvement cannot be entirely excluded. Clinically without abdo pain or RUQ tenderness .MRI abdomen per GI.
Hyperlipidemia -restart once GI issues are stable
Hypothyroidism -cw levothyroxine
DVT PPX - SCDs
Code Status - Full Code
d/w with spouse at bedside in details.
Anticipated Discharge: > 48 hours
Subjective/Interval History
-
Date of Service: October 22, 2024
Seen postprocedure
denies abd pain
Objective Data
-
Labs:
Laboratory Results
10/22/24
08:04
WBC 7.8
Hgb 10.3 L
Hct 30.4 L
Plt Count 358
Sodium 140
Potassium 3.7
Chloride 108 H
Carbon Dioxide 23
BUN 12
Creatinine 0.9
Glucose 89
Calcium 8.9
Vital Signs:
Vital Signs
Temp Pulse Resp BP Pulse Ox
97.4 F 79 19 152/72 97
10/22/24 11:40 10/22/24 12:00 10/22/24 12:00 10/22/24 12:00 10/22/24 12:10
I&O
10/21/24 10/22/24 10/23/24
06:59 06:59 06:59
Intake Total 1200 / 1200 720 / 720 50 / 50
Balance 1200 / 1200 720 / 720 50 / 50
Physical Exam
-
General: No Apparent Distress and Comfortable
HEENT: Normocephalic, Atraumatic and Moist Mucous Membranes
Respiratory: Non Labored Respirations; Negative Accessory Resp Muscle Use
Cardiac: Regular Rhythm and S1/S2
GI: Soft, Nontender, Nondistended and Normal Bowel Sounds
Neuro: Awake and AO x 3
Psych: Calm
Data Reviewed
-
Total Time Spent with Patient (in minutes): 55
--- NOTE | 2024-10-22 13:00 | PTCARENOTE ---
pt received from GI lab post endoscopy/colonoscopy. pt walked to bed from stretcher. VSS. AAOx3. Family member @bedside. LR running @80mls/hr. Pt remains NPO for MRi. awaiting MRI. Pt resting in bed with family member. Call garcia within reach.
[2024-10-22] MEDS: LR 1000 IV (13:10)
--- NOTE | 2024-10-22 15:48 | CM ---
Alert awake oriented patient who lives with her Timothy they lives in 2 story home with 2 steps to enter and bed bathroom on first floor.She is independent in driving and in all activities of daily living.Offered VN she declined.
No adaptive devices
Never had VN/SNF
Pharmacy [facility]
PCP Dr Rushing
PLAN Home no needs
[2024-10-22] MEDS: LIPITOR 10 MG PO (21:55)
[2024-10-22] MEDS: SYNTHROID 100 MCG PO (21:56)
[2024-10-22] MEDS: ZESTRIL 20 MG PO (21:58)
[2024-10-23] MEDS: LR 1000 IV (05:14)
--- NOTE | 2024-10-23 05:45 | W.PN.GI.CBS2 ---
Today's Communication / Plan
-
No further signs of GI bleeding and stable Hgb on serial CBC. Pathology results pending from EGD/Colon. MRI/MRCP concerning for gallbladder varices versus cholecystitis versus tumor infiltration. She is asymptomatic and previous normal LFTs. Favor
obtaining general surgery consult given MRI findings. See rest of care as outlined below.
Assessment / Plan
-
Ms Sewell is a 77-year-old female history of diverticulosis, uterine cancer status post hysterectomy/XRT, hypothyroidism, anxiety, esophageal stricture with prior dilation, diverticulosis, colon polyp ?, CVA on aspirin presents with onset of
rectal bleeding. In review with patient she admits to recent cold symptoms. She did take a Ibuprofen/steroids along with ASA last week but has sore throat and congestion. She also admits to onset of dysphagia with symptoms with hx longstanding
dysphagia with prior esophageal dilation. Pt did not recall last ? in [place] but had dilation at in 2007. She is also noted with onset of rectal bleeding. Hx GI bleeding 2021 diverticular vs hemorrhoids. No scope completed. She reported
prior colonoscopy at [place] around [id number] reported diverticulosis and polyps. She did have colonoscopy [address] Freddy asif. On admission hbg 10.[address] neck this week with Mild bilateral cervical
lymphadenopathy. Stable Mild acute sphenoid sinusitis. Improved, DDD.
#Painless Hematochezia c/f #LGIB
#Acute Blood Loss Anemia w/out transfusions
#Hx of Acute on Chronic Dysphagia (s/p previous endoscopic dilations, in 2013 at [place])
#Sinusitis #URI Symptoms #CT Neck Cervical Lymphadenopathy
#NSAID/Steroid Use
Patient presenting with multiple episodes of painless hematochezia concerning for a LGIB. Notes a prior history of GI bleeding in the past several years ago with a similar presentation (reports that it was either diverticular versus hemorrhoidal ?),
however no colonoscopy was performed. Last colonoscopy around [id number] where she was found to have diverticulosis and polyps. Additionally, notes chronic dysphagia as well with known esophageal strictures s/p previous endoscopic dilations in the
past (no recent prior endoscopic records available). Additionally, notes taking significant NSAIDs/steroids along with ASA for sinusitis and URI symptoms. Otherwise, no other abdominal pain, nausea/vomiting or unintentional weight loss. Etiology of
patient's hematochezia seems most suspicious for a diverticular hemorrhage versus hemorrhoids versus colonic AVMs. Cannot exclude a bleeding polyp/lesion but less likely. Although patient reports NSAIDs and recent steroids, doubt brisk UGIB based on
her hemodynamics and improved Hgb on repeat labs this afternoon and without any prior melena. Suspect her mildly elevated BUN related to hypovolemia given her reported poor p.o intake given her previous URI symptoms and chronic dysphagia rather than
a brisk UGIB. Regardless, she would still benefit from an EGD given her acute on chronic dysphagia along with a colonoscopy this admission for her suspected LGIB. Okay to start CLD along with trending serial H/h while inpatient. If recurrent large
volume hematochezia or HD-instability, would obtain a stat CTA in attempts of localization and consult IR if a (+) colonic source is found. Furthermore, given her dysphagia and adenopathy would consider pursuing further CT imaging of the chest over
the weekend as well prior to endoscopic evaluation as unable to locate prior recent endoscopic records.
CT CAP 10/20/24- Impression: No esophageal dilatation. No apparent significant esophageal wall thickening; cholelithiasis with 2 cm gallstone along with progressive irregular slightly nodular gallbladder wall thickening and enhancement has developed
since prior examination. No associated pericholecystic inflammatory stranding or fluid. Although possibly inflammatory/cholecystitis (chronic more likely than acute, early neoplastic involvement cannot be entirely excluded) ; stable hepatic and
renal cysts ; no evidence of bowel obstruction, mild sigmoid diverticulosis without acute diverticulitis and constipation with mild to moderate colonic fecal burden
No further signs of recurrent GI bleeding this admission and Hgb remains stable without recent transfusions.
S/p EGD/Colon 10/22: Benign-appearing esophageal stenosis at 30 cms s/p biopsies unable to be traversed with adult upper endoscope, scope was used to complete the exam and the UGI was otherwise grossly unremarkable ; colonoscopy revealed
fair prep with brown stool, herring-diverticulosis with severe diverticulosis with associated luminal narrowing within the sigmoid colon and congested mucosa, suspicious for resolved diverticular hemorrhage
MRI/MRCP 10/22/24: Mild diffuse nodular enhancement of the gallbladder wall. Diagnostic possibilities are (1) GALLBLADDER VARICES (considered most likely given that the appearance is only present on the postcontrast images), (2) acute cholecystitis
(less likely), or (3) tumor infiltration of the gallbladder wall (unlikely) ; mild intrahepatic and extrahepatic biliary ductal dilatation ; 2.9 cm gallstone ; moderate polycystic liver and kidney disease along with moderate hypoplasia of the L lobe
of the liver
Recommendations:
- Okay with soft, mechanical diet given benign esophageal stricture
- Pantoprazole 40 mg once daily
- Hgb remains stable, trend CBC q daily and transfuse as needed
- No further signs of recurrent hematochezia, likely suspected diverticular hemorrhage given her presentation
- Await pathology results from both her EGD and Colonoscopy
- Would benefit from a repeat EGD with dilation as an outpatient with Dr. Ch. Can be coordinated as an outpatient pending review of her pathology results
- In regards to her MRI/MRCP, she denies any prior history of liver disease however this did reveal moderate hypoplasia and c/f GB varices versus cholecystitis (although doubt clinically) versus tumor infiltration
- Patient is asymptomatic and previous normal LFTs, however favor general surgery consultation given gallbladder findings
- She would benefit from Hepatology follow-up as well if her moderate hypoplasia of the L lobe is resulting in non-cirrhotic portal HTN resulting in GB findings
- If brisk/recurrent large volume hematochezia, significant drop in Hgb or HD-instability would obtain stat CTA in attempts of localization
- Strict avoidance of all NSAIDs
- Rest of care as per primary team
Discussed with primary internal medicine team this AM. GI will continue to follow.
Subjective
Subjective
Date of Service: October 23, 2024
- S/p EGD/Colon 10/22: Benign-appearing esophageal stenosis at 30 cms s/p biopsies unable to be traversed with adult upper endoscope, scope was used to complete the exam and the UGI was otherwise grossly unremarkable ; colonoscopy revealed
fair prep with brown stool, herring-diverticulosis with severe diverticulosis with associated luminal narrowing within the sigmoid colon and congested mucosa, suspicious for resolved diverticular hemorrhage
- MRI/MRCP 10/22/24: Mild diffuse nodular enhancement of the gallbladder wall. Diagnostic possibilities are (1) GALLBLADDER VARICES (considered most likely given that the appearance is only present on the postcontrast images), (2) acute cholecystitis
(less likely), or (3) tumor infiltration of the gallbladder wall (unlikely) ; mild intrahepatic and extrahepatic biliary ductal dilatation ; 2.9 cm gallstone ; moderate polycystic liver and kidney disease along with moderate hypoplasia of the L lobe
of the liver
- Otherwise, no acute events overnight
Feeling well and resting comfortably in bed without any bloody stools or abdominal pain. Denies any nausea/vomiting or RUQ discomfort. No other fevers or chills. Denies any prior history of liver disease or known family history of liver
disease/cirrhosis.
Objective
Data Reviewed
Laboratory Data:
Laboratory Results
10/22/24 08:04
10/22/24 08:04
Laboratory Results
PT 13.1 Sec (11.4-14.6) 10/19/24 10:52
INR 0.96 10/19/24 10:52
Total Bilirubin 0.5 mg/dl (0.2-1.3) 10/19/24 01:25
AST 30 U/L (14-36) 10/19/24 01:25
ALT 22 U/L (0-35) 10/19/24 01:25
Alkaline Phosphatase 86 U/L (38-126) 10/19/24 01:25
Vital Signs and I&O:
Vital Signs
Temp Pulse Resp BP Pulse Ox
99.5 F 85 18 138/59 98
10/22/24 23:00 10/22/24 23:00 10/22/24 23:00 10/22/24 23:00 10/22/24 23:00
I&O
10/21/24 10/22/24 10/23/24
06:59 06:59 06:59
Intake Total 1200 / 1200 720 / 720 530 / 530
Balance 1200 / 1200 720 / 720 530 / 530
Physical Exam
Physical Exam
HEENT: Anicteric and Moist mucous membranes
Pulmonary: Other (Normal WOB on room air)
GI: Soft, Non Distended and Non Tender
Extremities: No Edema and Warm
Neuro: Non Focal
[2024-10-23 07:20] VITALS: BP 119/92
[2024-10-23 08:42] LABS: % Basophils 0.3 % (0-2); % Eosinophils 2.4 % (0-6); % Immature Granulocytes 0.6 % (0-0.5); % Lymphocytes 23.1 % (20.5-51.1); % Monocytes 10.9 % (1.7-9.3); % Neutrophils 62.7 % (42.2-75.2); Absolute Eosinophils 0.2 10^3/uL (0-0.7); Absolute Lymphocytes 1.5 10^3/uL (1.2-3.4); Absolute Monocytes 0.7 10^3/uL (0.1-0.6); Absolute Neutrophils 4.1 10^3/uL (1.4-6.5); Hematocrit 28.2 % (37.0-47.0); Hemoglobin 9.6 g/dL (12.0-16.0); Mean Corpuscular Hgb 27.7 pg (27.0-31.0); Mean Corpuscular Volume 81.3 fL (81.0-99.0); Mean Platelet Volume 9.9 fL (7.4-10.4); Nucleated Red Blood Cells % 0 %; Platelet Count 324 10^3/uL (130-400); Red Blood Cell Count 3.47 10^6/uL (4.20-5.40); Red Cell Dist. Width 13.5 % (11.5-14.5); White Blood Cell Count 6.6 10^3/uL (4.8-10.8)
[2024-10-23 09:07] LABS: ALT (SGPT) 18 U/L (0-35); AST (SGOT) 24 U/L (14-36); Albumin 2.8 g/dl (3.5-5.0); Alkaline Phosphatase 67 U/L (38-126); Blood Urea Nitrogen 9 mg/dl (7-17); Calcium 8.8 mg/dl (8.4-10.2); Carbon Dioxide 27 mmol/L (22-30); Chloride 107 mmol/L (98-107); Estimated Creatinine Clearance 36 ml/min; Glucose 84 mg/dl (70-99); Potassium 3.3 mmol/L (3.5-5.1); Sodium 138 mmol/L (135-145); Total Bilirubin 0.7 mg/dl (0.2-1.3); Total Protein 4.9 g/dl (6.3-8.2)
[2024-10-23] MEDS: NSS (PRESERVATIVE FREE) 10 ML IV ×2 (10:14→21:15)
[2024-10-23] MEDS: KCL 260 MEQ IV (10:14)
[2024-10-23] MEDS: PROTONIX IV 40 MG IV ×2 (10:14→21:16)
[2024-10-23 11:16] VITALS: BP 140/73
--- NOTE | 2024-10-23 12:26 | CON.GS ---
Medical History
-
Chief Complaint: Bloody BMs
History of Present Illness:
Patient is an 79 with a PMH of yo F with anxiety/depression, chronic dysphagia 2/2 known esophageal stricture, HLD, CVA, hypothyroidism, uterine cancer s/p open LING and adjuvant radiation, and prior diverticular bleeding episodes who presents with
hematochezia. Ms. Sewell states that several weeks ago she had URI symptoms with sore throat and congestion. Over the past few days she has developed loose bloody stools. She denies any significant abdominal pain or cramping. Currently she
states that her bleeding has improved but continues to have some looser stools. She denies any dizziness or lightheadedness. No syncopal episodes. She reports a prior episode of lower GI bleeding several years ago which was attributed to
diverticulosis. She had no bleeding or discharge at that time as well. She currently takes a daily aspirin as well as Prednisone for her recent URI symptoms. She is already taking Ibuprofen. She has a known esophageal stricture which she states
'has been present from ' she follows with a GI physician down in [place] who is. Retiring has been performing intermittent dilations every few years as needed. She currently admits to dysphagia with both solids and liquids.
During the course of the above (or in retrospect) she denies any RUQ abdominal pain. She denies any worsening abdominal pain with oral intake. No fevers or chills. No jaundice, no stools, or tea colored urine. She has never been previously told
that she had gallbladder issues or gallstones. Family history notable for a mother and daughter who both have their gallbladders removed. No family history notable for GI or hepatobiliary malignancies. No recent unexplained weight loss.
Past Medical History
Past Medical History: Cancer (Uterine cancer), CVA, Hypercholesterolemia, Hypothyroidism, Psychiatric (Depression/anxiety) and Other (Esophageal stricture, diverticulosis)
Past Surgical History: Gynecological (Uterine cancer s/p open LING and XRT)
Social History
Tobacco: Non-Smoker
Alcohol: Occasional (Rare)
Drug: None
Personal:
Living: With Family
Family History
Family History: Other (Mother and daughter postcholecystectomy)
Allergies / Home Medications
Allergy/AdvReac Type Severity Reaction Status Date / Time
terfenadine [From [place]] Allergy Unknown Verified 10/19/24 02:06
�Medication �Instructions �Recorded �Confirmed �Type
levothyroxine 100 mcg tablet 100 mcg PO HS Thyroid 04/20/20 10/19/24 History
simvastatin 40 mg tablet (Zocor) 40 mg PO HS High Cholesterol ##0 06/21/22 10/19/24 History
aspirin 81 mg tablet,delayed 81 mg PO QPM Blood Clot 10/19/24 10/19/24 History
release Prevention/Tx
lisinopril 20 mg tablet 20 mg PO QPM Blood Pressure 10/19/24 10/19/24 History
prednisone 20 mg tablet 20 mg PO DAILY INFLAMMATION 10/19/24 10/19/24 History
therapeutic multivitamin 1 tab PO DAILY Supplement 10/19/24 10/19/24 History
Review of Systems
-
A 10 point review of systems was completed, and was negative except as per HPI.
Physical Exam
Vital Signs
Temp Pulse Resp BP Pulse Ox
98.0 F 89 17 140/73 97
10/23/24 11:16 10/23/24 11:16 10/23/24 11:16 10/23/24 11:16 10/23/24 11:16
Body Mass Index (BMI) 22.2
Lab Results
10/23/24 08:12
10/23/24 08:12
WBC 6.6 10^3/uL (4.8-10.8) 10/23/24 08:12
Hgb 9.6 g/dL (12.0-16.0) L 10/23/24 08:12
Hct 28.2 % (37.0-47.0) L 10/23/24 08:12
Plt Count 324 10^3/uL (130-400) 10/23/24 08:12
Abs Immat Gran (auto) 0.0 10^3/uL (0-0.05) 10/23/24 08:12
Neutrophils % 62.7 % (42.2-75.2) 10/23/24 08:12
Physical Exam
General: Well Developed, Well Nourished and No Apparent Distress
HEENT: Normocephalic and Anicteric
Respiratory: Non Labored Respirations
Cardiac: Regular Rhythm
GI: Soft, Non Tender ( Negative Enamorado's sign), Non Distended and Incisions (Midline well-healed)
Skin: Warm and Dry
Neuro: Nonfocal/Grossly Intact
Data Reviewed
-
CT Scan: Image Personally Visualized and interpreted and Report Reviewed by me
MRI: Image Personally Visualized and interpreted and Report Reviewed by me
Labs: Labs Reviewed by me
Old Records: Reviewed
Assessment / Plan
-
Patient is a 79 yo F who was found to have an abnormal appearing gallbladder, as well as large gallstone, without any symptoms of cholecystitis during the course of her workup for hematochezia.
The natural history and pathophysiology of biliary and stone disease was discussed. Anatomy was reviewed. Workup thus far including CT scan imaging and MRI were reviewed. Specifically, we discussed her MRI findings of gallbladder varices and
potential mass. Uncertain exact clinical significance. No clear mass on my read of her imaging. Recommend a CEA and CA 19-9 for completeness. Very unlikely to be related to gallbladder varices given her clinical stability and lack of portal
hypertension. More likely chronic cholecystitis related to her large gallstone with a subsequent abnormal appearing gallbladder. No plans or indication for cholecystectomy during this admission. Recommend outpatient follow-up with either myself
or down at a hepatobiliary center given her above MRI findings. All questions answered.
-- No plans or indication for cholecystectomy during this admission
-- Outpatient follow-up with myself or at a hepatobiliary center
-- Please call with questions or concerns
--- NOTE | 2024-10-23 12:45 | W.PN.HOSP.TC ---
Today's Communication/Plan
-
diet tolerance
PT eval
Assessment / Plan
Assessment / Plan
IMPRESSION:
This is a 79-year-old female with past medical history significant for CVA and a prior GI bleed in 2021 diastolic continuously presenting to the emergency department with bright red blood per rectum. She had been on prednisone for 2 days for
laryngitis with significant throat edema, she is also taking aspirin for history of CVA. Patient reports acute episode of bright red blood per rectum. She denies any recent melena, abdominal pain, nausea vomiting or coffee-ground emesis. She is
hemodynamically stable. Hemoglobin is stable at 10.5. MCV slightly low at 80.
PLAN:
GI Bleed - Suspect lower gi bleed likely diverticular
- HD stable . HH drop likely dilutional
- Status post endoscopy with stricture in esophagus status postbiopsy. Colonoscopy with fair prep suspect resolved diverticular hemorrhage.
-Will require repeat EGD with dilatation as outpatient. Avoid NSAIDs.
-MR abd w/ GB varices vs. cholecystitis likely chronic vs. low likelihood of malignancy.
- If with any episode of repeat bleeding check CT angio of the abdomen pelvis. If positive will need IR input
- d/w with GI. Surgery input noted-no plan for surgery.
-tolerating diet. OP f/u recommended w/hepatalogy and surgery.
Primary HTN
- Resume lisinopril for now
Recent laryngitis - on steroids -last day 10/21 .Improved symptoms.
BL cervical lymphadenopathy - mild and has been stable since 2020. Abdomen/Pelvis CT 07/[address] C/A/P showed no generalized lymphadenopathy . Possible reactive to laryngitis - follow up after treatments
GB wall abnormality - Irregular slightly nodular gallbladder wall thickening and enhancement measuring up to 5 mm, which has progressed compared to prior examination. No associated pericholecystic inflammatory stranding or fluid. Cannot exclude
cholecystitis (chronic more likely than acute). Early neoplastic involvement cannot be entirely excluded. Clinically without abdo pain or RUQ tenderness .MRI abdomen -MR abd w/ GB varices vs. cholecystitis likely chronic vs. low likelihood of
malignancy. OP f/u recommended w/hepatalogy and surgery.
Hyperlipidemia -restart once GI issues are stable
Hypothyroidism -cw levothyroxine
DVT PPX - SCDs
Code Status - Full Code
d/w with spouse at bedside in details.
d/w wtih GI
PT eval
Anticipated Discharge: Today
Subjective/Interval History
-
Date of Service: October 23, 2024
eating breakfast
no abd pain or nausea or vomiting
no further bleeding
Objective Data
-
Labs:
Laboratory Results
10/23/24
08:12
WBC 6.6
Hgb 9.6 L
Hct 28.2 L
Plt Count 324
Sodium 138
Potassium 3.3 L
Chloride 107
Carbon Dioxide 27
BUN 9
Creatinine 1.0
Glucose 84
Calcium 8.8
Total Bilirubin 0.7
AST 24
ALT 18
Alkaline Phosphatase 67
Vital Signs:
Vital Signs
Temp Pulse Resp BP Pulse Ox
98.0 F 89 17 140/73 97
10/23/24 11:16 10/23/24 11:16 10/23/24 11:16 10/23/24 11:16 10/23/24 11:16
I&O
10/22/24 10/23/24 10/24/24
06:59 06:59 06:59
Intake Total 720 / 720 530 / 530 480 / 480
Balance 720 / 720 530 / 530 480 / 480
Physical Exam
-
General: No Apparent Distress and Comfortable
HEENT: Normocephalic, Atraumatic and Moist Mucous Membranes
Respiratory: Non Labored Respirations; Negative Accessory Resp Muscle Use
Cardiac: Regular Rhythm and S1/S2
GI: Soft, Nontender, Nondistended and Normal Bowel Sounds
Neuro: Awake and AO x 3
Psych: Calm
[2024-10-23] MEDS: VISBIOME 2 CAP PO (13:58)
[2024-10-23 15:20] VITALS: BP 110/63
--- NOTE | 2024-10-23 16:25 | W.PN.UPDATE ---
Update Note
Progress Note Update
Brief GI Note:
I discussed patient's case with [facility] at [facility] earlier this AM given the concern for gallbladder varices mentioned on MRI/MRCP. Patient is without any signs or symptoms to suggest portal HTN based on her imaging, recent endoscopy
(ie no EV/GV/PHG/duodenal varices, etc) and without any laboratory evidence of synthetic dysfunction given her plts 300s, INR 0.96 and normal LFTs with albumin high 3-4s. She has no other evidence to suggest chronic liver disease or stigmata of
portal HTN on exam. Thus, doubt GB varices as mentioned on recent MRI/MRCP and suspect either chronic cholecystitis given her large gallstone versus neoplastic etiology (although less likely) pending tumor markers. Discussed with general surgery as
well this afternoon given the MRI findings who was also in agreement and felt to have likely chronic cholecystitis and advised outpatient follow-up.
Discussed with primary internal medicine team. Will coordinate outpatient follow-up with our office after discharge. See rest of recommendations as mentioned on same day progress note earlier today.
GI will sign-off, please call back with any questions or concerns.
[2024-10-23] MEDS: LR IV (17:15)
[2024-10-23 19:00] VITALS: BP 135/69
[2024-10-23] MEDS: LIPITOR 10 MG PO (21:22)
[2024-10-23] MEDS: SYNTHROID 100 MCG PO (21:23)
[2024-10-23] MEDS: ZESTRIL 20 MG PO (21:23)
[2024-10-23 23:00] VITALS: BP 148/73
--- NOTE | 2024-10-23 23:29 | PTCARENOTE ---
Oral care was not performed on patient because they stated it was their preference to brush their teeth in the morning instead.
[2024-10-24 07:05] VITALS: BP 147/70
[2024-10-24] MEDS: NSS (PRESERVATIVE FREE) 10 ML IV (08:21)
[2024-10-24] MEDS: PROTONIX IV 40 MG IV (08:21)
[2024-10-24] MEDS: FLUSH (NSS) 2 FLUSH IV (08:22)
--- NOTE | 2024-10-24 11:30 | W.PN.HOSP.TC ---
Today's Communication/Plan
-
Continue with PPI
PT eval pendingy
Outpatient GI and surgery follow-up
Assessment / Plan
Assessment / Plan
IMPRESSION:
This is a 79-year-old female with past medical history significant for CVA and a prior GI bleed in 2021 diastolic continuously presenting to the emergency department with bright red blood per rectum. She had been on prednisone for 2 days for
laryngitis with significant throat edema, she is also taking aspirin for history of CVA. Patient reports acute episode of bright red blood per rectum. She denies any recent melena, abdominal pain, nausea vomiting or coffee-ground emesis. She is
hemodynamically stable. Hemoglobin is stable at 10.5. MCV slightly low at 80.
PLAN:
GI Bleed - Suspect lower gi bleed likely diverticular
- HD stable . HH drop likely dilutional
- Status post endoscopy with stricture in esophagus status postbiopsy. Colonoscopy with fair prep suspect resolved diverticular hemorrhage.
-Will require repeat EGD with dilatation as outpatient. Avoid NSAIDs.
-MR abd w/ GB varices vs. cholecystitis likely chronic vs. low likelihood of malignancy.
-d/w with GI on 10/23 in details . Surgery input noted-no plan for surgery.
-tolerating diet. OP f/u recommended w/hepatalogy and surgery. CEA normal CA pending
Primary HTN - Resume lisinopril for now
Recent laryngitis - on steroids -last day 10/21 .Improved symptoms.
BL cervical lymphadenopathy - mild and has been stable since 2020. Abdomen/Pelvis CT 07/[address] C/A/P showed no generalized lymphadenopathy . Possible reactive to laryngitis - follow up after treatments
GB wall abnormality - Irregular slightly nodular gallbladder wall thickening and enhancement measuring up to 5 mm, which has progressed compared to prior examination. No associated pericholecystic inflammatory stranding or fluid. Cannot exclude
cholecystitis (chronic more likely than acute). Early neoplastic involvement cannot be entirely excluded. Clinically without abdo pain or RUQ tenderness .MRI abdomen -MR abd w/ GB varices vs. cholecystitis likely chronic vs. low likelihood of
malignancy. OP f/u recommended w/hepatalogy and surgery.
Hyperlipidemia -restart once GI issues are stable
Hypothyroidism -cw levothyroxine
Hypokalemia�replete and monitor
DVT PPX - SCDs
Code Status - Full Code
PT eval
More than 30 minutes spent in discharge including
Final examination of the patient
Summarizing hospital stay
Instructions for continuing care to all relevant caregivers
Preparation of discharge records, prescriptions, and referral forms
Total time spent (in minutes): 52
Anticipated Discharge: Today
Subjective/Interval History
-
Date of Service: October 24, 2024
Denies any abdominal pain
Denies any nausea or vomiting
Objective Data
-
Vital Signs:
Vital Signs
Temp Pulse Resp BP Pulse Ox
98.2 F 69 18 147/70 97
10/24/24 07:05 10/24/24 07:05 10/24/24 07:05 10/24/24 07:05 10/24/24 07:05
I&O
10/23/24 10/24/24 10/25/24
06:59 06:59 06:59
Intake Total 530 / 530 630 / 1110 480 / 480
Balance 530 / 530 630 / 1110 480 / 480
Physical Exam
-
General: No Apparent Distress and Comfortable
HEENT: Normocephalic, Atraumatic and Moist Mucous Membranes
Respiratory: Non Labored Respirations; Negative Accessory Resp Muscle Use
Cardiac: Regular Rhythm and S1/S2
GI: Soft, Nontender, Nondistended and Normal Bowel Sounds
Neuro: Awake and AO x 3
Psych: Calm
[2024-10-24 12:40] VITALS: BP 176/81; PULSE 75; O2SAT 95
--- NOTE | 2024-10-24 13:18 | W.DCSUMMARY ---
Discharge Summary
Discharge Data
Date of Admission: 10/19/24
Date of Discharge: 10/24/24
-
Pending Results: No
Hospital Course
79-year-old female past medical history of hypothyroidism, hyperlipidemia, cervical lymphadenopathy, recent laryngitis was presented with gastrointestinal bleeding. Patient was eval by gastroenterology. Patient hemoglobin was trended without
significant drop. Patient underwent Status post endoscopy with stricture in esophagus status postbiopsy. Colonoscopy with fair prep suspect resolved diverticular hemorrhage. CT scan which showed Cholelithiasis with 2 cm gallstone. Progressive
irregular slightly nodular gallbladder wall thickening and enhancement has developed since prior examination. No associated pericholecystic inflammatory stranding or fluid. Although possibly inflammatory/cholecystitis (chronic more likely than
acute, early neoplastic involvement cannot be entirely excluded. Subsequently afterwards underwent MRI of the abdomen . Mild diffuse nodular enhancement of the gallbladder wall. Diagnostic possibilities are (1) GALLBLADDER VARICES (considered most
likely given that the appearance is only present on the postcontrast images), (2) acute cholecystitis (less likely), or (3) tumor infiltration of the gallbladder wall (unlikely). General surgery was consulted and recommended no intervention.
Postprocedure patient was tolerated without any difficulty. Patient was eval by gastroenterology. GI also discussed patient case with caster helper at [facility]. Patient MRI finding most likely consistent with chronic cholecystitis. patient went
to follow-up outpatient with hepatology and general surgery.
Discharge Plan
-
Patient Disposition: Home with Home Care
Discharge Diagnosis/Procedures: Gastrointestinal iron and bleeding likely second diverticular
Suspected chronic cholecystitis versus low likelihood of gallbladder varices
Cervical stenosis
Hyperplasia of the liver
Moderate polycystic liver and kidney disease
Gallstones
Condition: Fair
Diet: Low Cholesterol
Activity: As tolerated
Driving Restrictions: As prior to admission
Other Services: VN
Activity Restrictions/Additional Instructions:
Also recommend to follow-up with general surgery in regards for gallstones.
Referrals:
Yovany Pizarro MD [Active] -
Matty Oconnell DO [Active] - 12/03/24 11:30 am
(f/u appointment for repeat endoscopy for dilatation and to follow-up biopsy results. 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
Call to confirm timing)
UNKNOWN - PT DOES,NOT KNOW [Family Provider] - in less than 1 week
Prescriptions:
New
pantoprazole [Protonix] 40 mg tablet,delayed release (DR/EC)
40 mg PO DAILY Qty: 30 0RF
Continued
levothyroxine 100 MCG tablet
100 mcg PO HS
simvastatin [Zocor] 40 mg Tablet
40 mg PO HS Qty: 0
lisinopril 20 mg Tablet
20 mg PO QPM
therapeutic multivitamin Tablet
1 tab PO DAILY
aspirin 81 mg Tablet,Delayed Release (Dr/Ec)
81 mg PO QPM
Discontinued
prednisone 20 mg Tablet
20 mg PO DAILY
Rx Instructions:
for 4 days starting 10/16/24
Discharge Orders:
Discharge Patient (As Directed); Ordered 10/24/24
Ordered By: David Bob
Discharge Date and Time
Discharge Date/Time: 10/24/24 15:40
Print Language: THAI
--- NOTE | 2024-10-24 13:32 | CM ---
CM met with Chrissy and her today; [place] has been cleared for discharge. VN was ordered today.
Pt had previously declined VN services, and when offered again today, she has again declined.
IMM provided; signed copy placed in chart and patient provided with the second copy.
Plan: Discharge to home with no anticipated needs. Pt's to provide transport home.
[2024-10-24 14:14] VITALS: BP 176/81; PULSE 75; O2SAT 98
[2024-10-24 14:54] VITALS: BP 134/76
[2024-10-25 22:43] LABS: CA 19-9 23 U/mL (<=35)
== END 2024-10-24 15:40 | disposition home health service (06) | DRG 378 ==
LOC: 3 WEST ACU 07:19
PROVIDERS: Internal Medicine; Nurse Practitioner Adult Health; Student in an Organized Health Care Education/Training Program; ADMITTING PHYSICIAN Internal Medicine; ATTENDING PHYSICIAN Hospitalist; CONSULT PHYSICIAN Student in an Organized Health Care Education/Training Program; CONSULT PHYSICIAN Surgery; EMERGENCY PHYSICIAN Emergency Medicine
PROC: 0DBN8ZX Excision of Sigmoid Colon, Via Natural or Artificial Opening Endoscopic, Diagnostic (ICD-10-PCS; 2024-10-22)
PROC: 0DB38ZX Excision of Lower Esophagus, Via Natural or Artificial Opening Endoscopic, Diagnostic (ICD-10-PCS; 2024-10-22)
DX: K57.31 Diverticulosis of large intestine without perforation or abscess with bleeding (principal); D62 Acute posthemorrhagic anemia; K80.10 Calculus of gallbladder with chronic cholecystitis without obstruction; Q44.6 Cystic disease of liver; E87.6 Hypokalemia; K44.9 Diaphragmatic hernia without obstruction or gangrene; K22.2 Esophageal obstruction; K20.80 Other esophagitis without bleeding; E03.9 Hypothyroidism, unspecified; E78.00 Pure hypercholesterolemia, unspecified; N28.1 Cyst of kidney, acquired
CPT/HCPCS: 88305; 88312; 71270; 74178; 74183; 80048; 80053; 82378; 85025; 85027; 85610; 86301; 86850; 86900; 86901; 96361; 96374; 97116; 97163; 97166; 99285; A9575; Q9967

== ENCOUNTER 2024-11-29 23:03 | Observation (INO) | payer MEDICARE, SELFPAY ==
[2024-11-29 16:09] VITALS: BP 154/69
[2024-11-29 16:37] LABS: % Basophils 0.2 % (0-2); % Immature Granulocytes 0.5 % (0-0.5); % Lymphocytes 1.3 % (20.5-51.1); % Monocytes 2.9 % (1.7-9.3); % Neutrophils 95.1 % (42.2-75.2); Absolute Immature Granulocytes 0.1 10^3/uL (0-0.05); Absolute Lymphocytes 0.2 10^3/uL (1.2-3.4); Absolute Monocytes 0.5 10^3/uL (0.1-0.6); Absolute Neutrophils 16.7 10^3/uL (1.4-6.5); Hematocrit 34.4 % (37.0-47.0); Hemoglobin 11.3 g/dL (12.0-16.0); Mean Corp Hgb Conc. 32.8 g/dL (33.0-37.0); Mean Corpuscular Hgb 26.5 pg (27.0-31.0); Mean Corpuscular Volume 80.8 fL (81.0-99.0); Nucleated Red Blood Cells % 0 %; Platelet Count 389 10^3/uL (130-400); Red Blood Cell Count 4.26 10^6/uL (4.20-5.40); Red Cell Dist. Width 13.3 % (11.5-14.5); White Blood Cell Count 17.6 10^3/uL (4.8-10.8)
[2024-11-29 16:49] LABS: ALT (SGPT) 19 U/L (0-35); AST (SGOT) 33 U/L (14-36); Albumin 4.1 g/dl (3.5-5.0); Alkaline Phosphatase 86 U/L (38-126); Blood Urea Nitrogen 22 mg/dl (7-17); Calcium 9.3 mg/dl (8.4-10.2); Carbon Dioxide 21 mmol/L (22-30); Chloride 111 mmol/L (98-107); Glucose 156 mg/dl (70-99); Lipase 215 U/L (23-300); Potassium 4.1 mmol/L (3.5-5.1); Sodium 143 mmol/L (135-145); Total Bilirubin 0.8 mg/dl (0.2-1.3); Total Protein 6.5 g/dl (6.3-8.2); eGFR > 60.00
[2024-11-29] MEDS: ZOFRAN 4 MG IV (18:50)
[2024-11-29] MEDS: NSS 1000 IV (18:50)
[2024-11-29 19:01] VITALS: BP 151/74
[2024-11-29 19:52] LABS: Lactic Acid 1.8 mmol/L (0.7-2.0)
[2024-11-29 20:00] VITALS: BP 120/66
--- NOTE | 2024-11-29 21:10 | ED.GENMED ---
History of Present Illness
General
Chief Complaint: Abdominal Symptoms
Source: patient and family
Exam Limitations: none
Time Seen by Provider: 11/29/24 18:28
Nursing documentation reviewed up to this point in time: agreed with
History of Present Illness
History of Present Illness:
Patient to ED with complaint of weakness, n/v/d. Symptoms started this AM. She denies fever/chills. Diffuse abd. discomfort. Daughter states that she and her sister had similar symptoms last week, lasted 24 hours. Reports patients symptoms are
similar, just worse.
Past History
Past History
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
ED Past Surgical History: Gynecological (hysterectomy, cancer resection and radiation)
Social History
Tobacco: Non-smoker
Alcohol: Occasional
Drug: None
Personal:
Living: with family
Family History
Family History: Other (reviewed and non-contributory)
Review of Systems
Review of Systems
Allergies reviewed?: Yes
All Other Systems: ROS reviewed and negative except as documented in HPI and ROS
Constitutional: Reports fatigue
EENT: Reports no symptoms
Respiratory: Reports no symptoms
Cardiac: Reports no symptoms
ABD/GI: Reports nausea, vomiting and diarrhea
: Reports no symptoms
Musculoskeletal: Reports no symptoms
Skin: Reports no symptoms
Neurological: Reports weakness
Psychiatric: Reports no symptoms
Phy Exam
General Physical Exam
General Presentation: moderate distress
General age: appears stated age
General Skin: warm and dry
General Habitus: normal
General Mental: alert
Cardiovascular Exam
Cardiovascular Exam: regular rate/rhythm and no edema
Pulmonary Exam
Pulmonary Exam: lungs clear and no respiratory distress
Gastrointestinal Exam
Gastrointestinal Exam: normal bowel sounds, soft, no organomegaly, no pulsatile mass, non distended and no cva tenderness
Palpation: generalized: Moderate tenderness
Musculoskeletal Exam
Musculoskeletal Exam: full ROM and neuro vasc intact
Skin Exam
Skin Exam: normal color, warm/dry and no rash
Psychiatric Exam
Psychiatric Exam: normal mood/affect
Course
Orders/Labs/Results
Orders:
Orders
11/29/24 16:10
IV Insert/Care/Rem.- Treatment PRN
11/29/24 16:20
Complete Blood Count/With Diff Urgent
Comprehensive Metabolic Panel Urgent
Lipase Urgent
11/29/24 18:28
0.9% Sodium Chloride 1000 ml [Nss] 1,000 ml IV BOLUS
11/29/24 18:37
Norovirus by PCR Urgent
FREDDY Source: Feces/Stool
Specimen Description:
STOOL [C difficile Antigen & Toxins] Urgent
FREDDY Source: Feces/Stool
Specimen Description:
Ondansetron Injectable [Zofran] 4 mg IV NOW STA
11/29/24 18:51
Lactic Acid Urgent
11/29/24 20:10
CT Abd/pelvis W Iv Cont Urgent
Comment:
Reason For Exam: diffuse pain, vomiting, diarrhea
11/29/24 21:29
Azithromycin 500 mg/250 ml [Zithromax Infusion] 500 mg in 250 ml IV NOW
CefTRIAXone [Rocephin] 1,000 mg IV NOW STA
MetroNIDAZOLE 500 MG/100 ML [Flagyl 500 mg] 100 ml IV NOW
11/29/24 22:03
Admit/Transfer Patient As Directed
Co-Sign Provider:
Level of Care: Observation services
Assign to:: Medical/Surgical
Physician / Group: Kalee Mauricio
Diagnosis: pneumonia, infectious colitis
Reason for Hospitalization: pneumonia, infectious colitis
11/29/24 22:04
PRN Pain Medication Management As Directed
May give lesser potent ordered pain med per pt: Yes
preference::
Protocol:: Medication orders for pain may be administered in a
manner that supports deferring to patient preference
when the pt is:
- Requesting an ordered lesser potent pain medication.
Least to most potent pain medications are defined
as: acetaminophen < NSAID < tramadol < opioids
(morphine, oxycodone, hydromorphone).
- Requesting a lesser dose of the same medication IF
ORDERED.
- Requesting a less intrusive route of administration
if both routes are prescribed by the provider (PO <
IV).
11/29/24 22:05
Code Status As Directed
Resuscitation Status: Full Code
11/29/24 22:15
COVID-19 Antigen Urgent
Source: Nasal Swab
Influenza A+B Rapid Molecular Urgent
FREDDY Source: Nasal Swab
Specimen Description:
11/30/24 00:43
Acetaminophen [Tylenol] 650 mg PO Q4HPRN PRN
Ondansetron Injectable [Zofran] 4 mg IV Q6HPRN PRN
11/30/24 00:43
Respiratory Culture/Gram Stain Urgent
FREDDY Source: Sputum
Specimen Description:
STOOL [C difficile Antigen & Toxins] Routine
FREDDY Source: Feces/Stool
Specimen Description:
Stool Culture Routine
FREDDY Source: Feces/Stool
Specimen Description:
Activity As Directed
Activity Level: Out of Bed-Early Mobility
Intake/ Output As Directed
Frequency: Per unit guidelines
Vital Signs As Directed
Frequency: Per unit guidelines
Weight As Directed
Frequency: Once
Comment: on admission
DX Deep Vein Thrombosis Video Routine
11/30/24 06:33
Complete Blood Count/No Diff IN AM
11/30/24 08:00
Cyanocobalamin [Vitamin B-12] 1,000 mcg PO DAILY
Lactobac/Bifidobac [Visbiome] 1 cap PO DAILY
Pantoprazole [Protonix] 40 mg PO DAILY
11/30/24 Dinner
Clear Liquid
At Your Request: Full Participation
11/30/24 18:00
Aspirin Low Dose EC [Aspir Low (Enteric Coated)] 81 mg PO QPM
Enoxaparin Sodium [Lovenox] 40 mg SC QPM
Lisinopril [Zestril] 20 mg PO QPM
11/30/24 22:00
Atorvastatin [Lipitor] 20 mg PO HS
Azithromycin 500 mg/250 ml [Zithromax Infusion] 500 mg in 250 ml IV Q24H
CefTRIAXone [Rocephin] 1,000 mg IV Q24H
Levothyroxine [Synthroid] 100 mcg PO HS
Abnormal Lab Results
11/29/24
16:20
WBC 17.6 H 10^3/uL
(4.8-10.8)
Hgb 11.3 L g/dL
(12.0-16.0)
Hct 34.4 L %
(37.0-47.0)
MCV 80.8 L fL
(81.0-99.0)
MCH 26.5 L pg
(27.0-31.0)
MCHC 32.8 L g/dL
(33.0-37.0)
Abs Immat Gran (auto) 0.1 H 10^3/uL
(0-0.05)
Absolute Neuts (auto) 16.7 H 10^3/uL
(1.4-6.5)
Absolute Lymphs (auto) 0.2 L 10^3/uL
(1.2-3.4)
Neutrophils % 95.1 H %
(42.2-75.2)
Lymphocytes % 1.3 L %
(20.5-51.1)
Chloride 111 H mmol/L
(98-107)
Carbon Dioxide 21 L mmol/L
(22-30)
BUN 22 H mg/dl
(7-17)
Glucose 156 H mg/dl
(70-99)
11/29/24 16:20
11/29/24 16:20
Vital Signs
Initial and Last Documented VS:
Initial Vital Signs
Temp Pulse Resp BP Pulse Ox
99.0 F 98 19 154/69 97
11/29/24 16:09 11/29/24 16:09 11/29/24 16:09 11/29/24 16:09 11/29/24 16:09
Last Documented Vital Signs
Temp Pulse Resp BP Pulse Ox
98.9 F 76 16 144/70 98
11/30/24 15:30 11/30/24 15:30 11/30/24 15:30 11/30/24 15:30 11/30/24 21:00
*Radiology
Radiology exam reviewed: radiology read reviewed
*Pulse Oximetry
Patient hypoxic: no
*Critical Care Note
Total Time (30-74mins, 75-104mins- exclusive of procedures): Not Applicable
Update Note
Update Note:
Patient to ED with complaint of weakness, n/v/d since this AM. She remains afebrile. Mild improvement with IVF and zofran. Labs, CT reviewed. Suspect colitis. Also notes patchy infiltrate RML, RLL concerning for pneumonia. Will admit to
hospitalist service. Antibiotics started in dept.
ED Attending Note
-
Portions of this chart may have been created with voice recognition software.� Occasional wrong word or��sound alike� substitutions may have occurred due to the inherent limitations of voice recognition software.
Discharge Plan
Departure
Patient Disposition: Admit
Date of Disposition: 11/29/24
Time of Disposition: 21:18
Presentation/result/management discussed w/ accepting MD/DO: Hospitalist
Patient with high blood pressure during this ER visit?: No
Condition: Fair
Covid-19: Not Applicable
Discharge Problem:
Pneumonia, Colitis
Interventions
Interventions:
*Risk Screen - Suicide Last Done: 11/29/24 16:09
*General Assessment Last Done: 11/29/24 18:47
*Neglect/Abuse Screening Last Done: 11/29/24 16:09
*ED- Fall Risk Assessment Last Done: 11/29/24 18:47
*ED COVID-19 Vaccine History Last Done: 11/29/24 18:47
*Nursing Disposition Last Done: 11/30/24 00:30
DD-Ofeuhw-Pqhnzjvira Assessment Last Done: 11/29/24 18:47
Discharge Date and Time
Discharge Date/Time: 11/30/24 00:30
--- NOTE | 2024-11-29 21:36 | HPS.HSE ---
Family Physician
-
Family Physician: Buzz Barboza
Chief Complaint
-
nausea, vomiting and diarrhea
History of Present Illness
Patient is a 79-year-old female with past medical history significant for diverticulosis, hypothyroidism, hyperlipidemia and anxiety who presented to [facility] ED for evaluation of nausea, vomiting and diarrhea. Patient reports symptoms started at
approximately 10 this morning and had gone on all day. She reports have chills and cough this morning, no recorded fever. Patient has 2 family members visiting from out of town that had similar symptoms last week and they improved within 24-hours.
Denies any fever, shortness of breath, chest pain, constipation or urinary symptoms.
Medical History
Past Medical History
Past Medical History: Reports Other
Additional Past Medical History:
diverticulosis
hypothyroidism
hyperlipidemia
anxiety
uterine cancer status post hysterectomy
CVA in 2020
urinary incontinence
Past Surgical History: Reports Other
Additional Past Surgical History:
hysterectomy
Social History
Tobacco: Non-smoker
Alcohol: Occasional
Drug: None
Personal:
Living: With Family
Family History
Family History: Not pertinent
Allergies / Home Medications
Allergies reflects when Allergies were last updated in [employer]
Home Medications with original date entered in [employer]
Allergy/Medication List:
Allergies
Allergy/AdvReac Type Severity Reaction Status Date / Time
terfenadine (From S[place]) Allergy Unknown Verified 11/29/24 16:09
Home Medications
levothyroxine 100 mcg tablet 100 mcg PO HS Thyroid 04/20/20
simvastatin 40 mg tablet (Zocor) 40 mg PO HS High Cholesterol ##0 06/21/22
aspirin 81 mg tablet,delayed release 81 mg PO QPM Blood Clot Prevention/Tx 10/19/24
lisinopril 20 mg tablet 20 mg PO QPM Blood Pressure 10/19/24
pantoprazole 40 mg tablet,delayed release (Protonix) 40 mg PO DAILY #30 tabs 10/23/24
cyanocobalamin (vitamin B-12) 1,000 mcg/mL sublingual drops 1,000 mcg sublingual DAILY 11/29/24
loperamide 2 mg tablet 4 mg PO DAILYPRN PRN dairrhea 11/29/24
Review of Systems
-
History Source: Patient
Constitutional: Reports Chills
Respiratory: Reports Cough
Abdomen/GI: Reports Abdominal Pain, Nausea, Vomiting and Diarrhea
Physical Exam
Vital Signs
Vital Signs
Temp Pulse Resp BP Pulse Ox
99.0 F 98 19 120/66 96
11/29/24 16:09 11/29/24 16:09 11/29/24 16:09 11/29/24 20:00 11/29/24 20:15
Physical Exam
General: Well Developed, Well Nourished, No Apparent Distress, Comfortable and Conversant
HEENT: NormoCephalic and Moist mucous membranes
Respiratory: Clear and Decreased Breath Sounds
Cardiac: S1/S2 and Regular Rhythm
GI: Soft, Non Tender, Non Distended and Normal Bowel Sounds
Rectal: Deferred by Provider
Genito-urinary: Deferred by me
Musculoskeletal: No Clubbing, No Cyanosis and No Edema
Skin: Warm and IV/Catheter Site
Neuro: Awake, Alert and AO x 3
Hematologic/Lymphatic: No Lymphadenopathy
Psych: Calm and Intact Judgment/Insight
Laboratory Results
-
11/29/24 16:20
11/29/24 16:20
Laboratory Results
Lactic Acid 1.8 mmol/L (0.7-2.0) 11/29/24 18:51
Total Bilirubin 0.8 mg/dl (0.2-1.3) 11/29/24 16:20
AST 33 U/L (14-36) 11/29/24 16:20
ALT 19 U/L (0-35) 11/29/24 16:20
Alkaline Phosphatase 86 U/L (38-126) 11/29/24 16:20
Lipase 215 U/L (23-300) 11/29/24 16:20
Data Reviewed
-
CT Scan: Report Reviewed by me (Abd/Pel: Mild wall thickening of the descending colon and sigmoid colon, nonspecific but could represent an infectious or inflammatory colitis. Mild pneumonia in the right middle lobe and right lower lobe.)
Lab Data: Labs Reviewed by me (WBC 17.6, )
Impression/Plan
-
IMPRESSION/PLAN:
#nausea, vomiting, diarrhea likely 2/2 infectious colitis
#pneumonia
WBC 17.6
Abd/Pel CT: Mild wall thickening of the descending colon and sigmoid colon, nonspecific but could represent an infectious or inflammatory colitis.
Mild pneumonia in the right middle lobe and right lower lobe.
- Admit to med/surg
- IV ceftriaxone and azithromycin
- Clear liquid diet, consider IVF if not drinking
- supportive care
- stool studies pending
- Covid/Influenza pending
#hypertension
- continue aspirin and lisinopril
#hypothyroidism
- continue levothyroxine
#hyperlipidemia
- continue simvastatin
#uterine cancer
status post hysterectomy and radiation >30 years ago
#anxiety
#diverticulosis
#CVA in 2020
#urinary incontinence
Code status: full code
DVT prophylaxis: Lovenox sq
--- NOTE | 2024-11-29 22:02 | W.PN.UPDATE ---
Update Note
Progress Note Update
This is an addendum to H&P written by Colleen Powers on 11/29/2024. Patient seen and examined independently with PACK ROOM OPERATOR.
79-year-old female past medical history of hypertension, hypothyroidism, hyperlipidemia, cervical lymphadenopathy, lower GI bleeding, history of CVA, uterine cancer status post hysterectomy, presenting with weakness, nausea vomiting and diarrhea and
abdominal pain starting this morning. No fevers or chills. Did have sick contacts with similar symptoms.
Labs show leukocytosis.
CT abdomen pelvis shows mild wall thickening of the descending colon and sigmoid colon which could represent infectious/inflammatory colitis, mild pneumonia in the right middle lobe right lower lobe.
Patient with acute infectious colitis, right-sided pneumonia.
IV fluids given.
Patient with acute infectious colitis likely viral, and right-sided pneumonia.
Check COVID and influenza. Stool studies pending. Clear liquid diet. Ceftriaxone/azithromycin to treat community-acquired pneumonia.
[2024-11-29] MEDS: ROCEPHIN 1000 MG IV (22:05)
[2024-11-29] MEDS: ZITHROMAX INFUSION 250 IV (22:06)
[2024-11-29 22:09] VITALS: BP 125/60
[2024-11-29 22:37] LABS: COVID-19 Antigen Negative (Negative)
[2024-11-29] MEDS: FLAGYL 500 MG 100 IV (22:56)
[2024-11-29 23:00] VITALS: BP 113/45
[2024-11-30] VITALS: BP 119/52
--- NOTE | 2024-11-30 00:45 | PTCARENOTE ---
Pt arrived on unit via stretcher from ED. Ambulated from stretcher to bed with standby assist of staff. A&Ox3. Oriented to unit. Call light within reach. Plan of care ongoing.
[2024-11-30 00:48] VITALS: BP 147/61; BMI 22.3
[2024-11-30 07:04] LABS: Hematocrit 27.5 % (37.0-47.0); Hemoglobin 9.2 g/dL (12.0-16.0); Mean Corp Hgb Conc. 33.5 g/dL (33.0-37.0); Mean Corpuscular Hgb 26.6 pg (27.0-31.0); Mean Corpuscular Volume 79.5 fL (81.0-99.0); Mean Platelet Volume 10.4 fL (7.4-10.4); Platelet Count 281 10^3/uL (130-400); Red Blood Cell Count 3.46 10^6/uL (4.20-5.40); Red Cell Dist. Width 13.7 % (11.5-14.5); White Blood Cell Count 5.6 10^3/uL (4.8-10.8)
[2024-11-30 07:30] VITALS: BP 133/67
[2024-11-30 08:51] LABS: Blood Urea Nitrogen 25 mg/dl (7-17); Calcium 8.2 mg/dl (8.4-10.2); Carbon Dioxide 22 mmol/L (22-30); Chloride 115 mmol/L (98-107); Estimated Creatinine Clearance 41 ml/min; Glucose 105 mg/dl (70-99); Potassium 3.7 mmol/L (3.5-5.1); Sodium 140 mmol/L (135-145); eGFR > 60.00
--- NOTE | 2024-11-30 09:17 | W.PN.HOSP.TC ---
Today's Communication/Plan
-
see plan
Assessment / Plan
Assessment / Plan
Gen: NAD, AAOx3.
Eyes: EOMI, PERRLA, no scleral icterus.
Neck: supple.
CV: RRR, +S1/S2, no m/r/g.
Resp: CTAB, no rales, wheezes, or rhonchi.
Abd: +BS, soft, NT, ND
Skin: No rashes.
Neuro: CN 2-12 intact, non-focal.
Psych: Normal mood and affect.
CT A/P: Mild wall thickening of the descending colon and sigmoid colon, nonspecific but could represent an infectious or inflammatory colitis. Mild pneumonia in the right middle lobe and right lower lobe.
Acute infectious colitis:
-CT A/P above, incidentally with PNA (likely aspiration), check CXR
-leukocytosis has resolved
-COVID/Flu NEG
-cont Rocephin/Azithro
-stool studies pending (although pt without further diarrhea)
-clears, advance diet as tolerated
Other problems:
Essential hypertension: cont Lisinopril
Hypothyroidism: cont levothyroxine
HLD: cont statin
h/o uterine cancer s/p hysterectomy and radiation >30 years ago
Anxiety:
CVA in 2020: cont ASA/statin
Urinary incontinence
FULL/Lovenox
Anticipated Discharge: Within 24 hours
Subjective/Interval History
-
Date of Service: November 30, 2024
Vomiting and diarrhea have resolved.
Objective Data
-
Labs:
Laboratory Results
11/30/24 11/30/24
06:33 08:27
WBC 5.6
Hgb 9.2 L
Hct 27.5 L
Plt Count 281 D
Sodium Cancelled 140
Potassium Cancelled 3.7
Chloride Cancelled 115 H
Carbon Dioxide Cancelled 22
BUN Cancelled 25 H
Creatinine Cancelled 0.9
Glucose Cancelled 105 H
Calcium Cancelled 8.2 L
Vital Signs:
Vital Signs
Temp Pulse Resp BP Pulse Ox
98.5 F 78 16 133/67 94
11/30/24 07:30 11/30/24 07:30 11/30/24 07:30 11/30/24 07:30 11/30/24 07:30
I&O
11/29/24 11/30/24 12/01/24
06:59 06:59 06:59
Intake Total 480 / 480
Balance 480 / 480
[2024-11-30] MEDS: PROTONIX 40 MG PO (09:30)
[2024-11-30] MEDS: VITAMIN B-12 1000 MCG PO (09:30)
[2024-11-30] MEDS: VISBIOME 1 CAP PO (09:30)
[2024-11-30 15:30] VITALS: BP 144/70
[2024-11-30] MEDS: ASPIR LOW (ENTERIC COATED) 81 MG PO (17:10)
[2024-11-30] MEDS: ZESTRIL 20 MG PO (17:10)
[2024-11-30] MEDS: LOVENOX 40 MG SC (17:10)
[2024-11-30] MEDS: LIPITOR 20 MG PO (20:59)
[2024-11-30] MEDS: SYNTHROID 100 MCG PO (20:59)
[2024-11-30] MEDS: ZITHROMAX INFUSION 250 IV (21:00)
[2024-11-30] MEDS: ROCEPHIN 1000 MG IV (21:02)
[2024-11-30] MEDS: STERILE WATER FOR INJECTION 10 ML IV (21:02)
[2024-11-30 23:10] VITALS: BP 121/70
[2024-12-01 07:05] VITALS: BP 131/68
--- NOTE | 2024-12-01 09:06 | W.PN.HOSP.TC ---
Today's Communication/Plan
-
Total time spent on d/c = 31 min. This included today's physical exam, progress note, review of laboratory and diagnostic data, preparation of discharge documents and prescriptions, and discussions about the pt's hospital course and discharge plan
with the patient and other emergency medical services coordinator involved in the patient's care.
Assessment / Plan
Assessment / Plan
Gen: NAD, AAOx3.
Eyes: EOMI, PERRLA, no scleral icterus.
Neck: supple.
CV: remains RRR, +S1/S2, no m/r/g.
Resp: remains CTAB, no rales, wheezes, or rhonchi.
Abd: remains +BS, soft, NT, ND
Skin: No rashes.
Neuro: CN 2-12 intact, non-focal.
Psych: Normal mood and affect.
CT A/P: Mild wall thickening of the descending colon and sigmoid colon, nonspecific but could represent an infectious or inflammatory colitis. Mild pneumonia in the right middle lobe and right lower lobe.
CXR: No acute disease of the chest. Mild cardiomegaly. New
Acute infectious colitis:
-CT A/P above, incidentally with PNA (likely aspiration) (although CXR without PNA)
-leukocytosis has resolved
-COVID/Flu NEG
-has been on Rocephin/Azithro, d/c on 3 further days Augmentin
-stool studies order but pt did not have further diarrhea
-tolerating diet
Other problems:
Essential hypertension: cont Lisinopril
Hypothyroidism: cont levothyroxine
HLD: cont statin
h/o uterine cancer s/p hysterectomy and radiation >30 years ago
Anxiety:
CVA in 2020: cont ASA/statin
Urinary incontinence
FULL/Lovenox
Anticipated Discharge: Today
Subjective/Interval History
-
Date of Service: December 01, 2024
Objective Data
-
Vital Signs:
Vital Signs
Temp Pulse Resp BP Pulse Ox
98.8 F 76 19 131/68 96
12/01/24 07:05 12/01/24 07:05 12/01/24 07:05 12/01/24 07:05 12/01/24 07:05
I&O
11/30/24 12/01/24 12/02/24
06:59 06:59 06:59
Intake Total 480 / 480 480 / 480
Balance 480 / 480 480 / 480
[2024-12-01] MEDS: VITAMIN B-12 1000 MCG PO (09:10)
[2024-12-01] MEDS: PROTONIX 40 MG PO (09:10)
[2024-12-01] MEDS: VISBIOME 1 CAP PO (09:10)
--- NOTE | 2024-12-01 10:09 | CM ---
Patient seen at bedside.
IA Completed
OBS status - form explained & signed. In chart
CM role explained
lives at home with in 2 story home with 1st floor bedroom & bathroom
PLOF: Independent
Denies DME
Denies VN/Rehab in past in [place]
Denies insecurities
PCP: Dr. Barboza
Pharmacy: [facility]
PLAN: home, no needs
& daughter to transport
[2024-12-01] MEDS: AUGMENTIN 875 MG/125 MG 1 TABLET PO (11:19)
[2024-12-01 11:31] VITALS: BP 154/80
--- NOTE | 2024-12-01 11:46 | W.DCSUMMARY ---
Discharge Summary
Discharge Data
Date of Admission: 11/29/24
Date of Discharge: 12/01/24
-
Pending Results: No
Hospital Course
Primary diagnoses:
Acute infectious colitis
Aspiration pneumonia
Secondary diagnoses:
Essential hypertension
Hypothyroidism
Hyperlipidemia
h/o uterine cancer s/p hysterectomy and radiation >30 years ago
Anxiety
h/o cerebrovascular accident in 2020
Urinary incontinence
Consultants:
None
Imaging:
CT A/P: Mild wall thickening of the descending colon and sigmoid colon, nonspecific but could represent an infectious or inflammatory colitis. Mild pneumonia in the right middle lobe and right lower lobe.
CXR: No acute disease of the chest. Mild cardiomegaly. New
Hospital course: 79-year-old female who presented with chief complaints of nausea, vomiting, diarrhea as outlined in the H&P done on admission. CT scan of the abdomen pelvis above and notable for infectious versus inflammatory colitis of the
descending and sigmoid colon. Right middle and lower lobe pneumonia was incidentally seen and this was likely aspiration pneumonia. COVID and flu testing were negative. Interestingly the follow-up chest x-ray showed no acute disease of the chest.
Patient's leukocytosis resolved. Stool studies were ordered but the patient did not have further diarrhea. She was on Rocephin and azithromycin and received 2 days while hospitalized. She is being discharged on 3 further days of Augmentin. She
was tolerating a diet at the time of discharge.
Discharge Plan
-
Patient Disposition: Home (Routine Discharge)
Discharge Diagnosis/Procedures: Acute infectious colitis, aspiration pneumonia
Condition: Good
Diet: Other diet
Additional Diets: heart healthy
Activity: As tolerated
Driving Restrictions: As prior to admission
Referrals:
Buzz Barboza MD [Family Provider, [facility]] - in less than 1 week
Prescriptions:
New
amoxicillin-pot clavulanate 875-125 mg Tablet
1 tab PO Q12 Qty: 6 0RF
Continued
levothyroxine 100 MCG tablet
100 mcg PO HS
simvastatin [Zocor] 40 mg Tablet
40 mg PO HS Qty: 0
lisinopril 20 mg Tablet
20 mg PO QPM
aspirin 81 mg Tablet,Delayed Release (Dr/Ec)
81 mg PO QPM
pantoprazole [Protonix] 40 mg tablet,delayed release (DR/EC)
40 mg PO DAILY Qty: 30 0RF
loperamide 2 mg Tablet
4 mg PO DAILYPRN PRN (Reason: dairrhea)
cyanocobalamin (vitamin B-12) 1,000 mcg/mL Drops
1,000 mcg SUBLINGUAL DAILY
Discharge Orders:
Discharge Patient (As Directed); Ordered 12/01/24
Ordered By: Hakeem Giordano
Discharge Date and Time
Print Language: SPANISH
== END 2024-12-01 11:46 | disposition home or self-care (01) ==
LOC: 3 WEST ACU 23:03
PROVIDERS: Emergency Medicine; Nurse Practitioner; Nurse Practitioner Family; ADMITTING PHYSICIAN Hospitalist; ATTENDING PHYSICIAN Internal Medicine; EMERGENCY PHYSICIAN Emergency Medicine; FAMILY PHYSICIAN Family Medicine
DX: A09 Infectious gastroenteritis and colitis, unspecified (principal); R53.1 Weakness; J69.0 Pneumonitis due to inhalation of food and vomit; Z11.52 Encounter for screening for COVID-19; I11.9 Hypertensive heart disease without heart failure; E03.9 Hypothyroidism, unspecified; Z85.42 Personal history of malignant neoplasm of other parts of uterus; Z90.710 Acquired absence of both cervix and uterus; F41.9 Anxiety disorder, unspecified; Z86.73 Personal history of transient ischemic attack (TIA), and cerebral infarction without residual deficits
CPT/HCPCS: 71046; 74177; 80048; 80053; 83605; 83690; 85025; 85027; 87502; 87811; 96361; 96365; 96375; 99284; G0378; Q9967

== ENCOUNTER 2025-03-27 08:59 | Emergency (ER) | payer MEDICARE, SELFPAY ==
[2025-03-27 09:09] VITALS: BP 143/75
--- NOTE | 2025-03-27 10:20 | ED.GENMED ---
History of Present Illness
General
Chief Complaint: Skin Problem
Source: patient and spouse
Exam Limitations: none
Time Seen by Provider: 03/27/25 10:01
Nursing documentation reviewed up to this point in time: agreed with
History of Present Illness
History of Present Illness:
79-year-old female with history as noted presents with small irritating bump on her right vulva. She says she noticed it a few days ago. She wears pads for some urinary incontinence and thinks it may have irritated the area. She denies fevers or
chills or any other acute complaints.
Past History
Past History
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
ED Past Surgical History: Gynecological (hysterectomy, cancer resection and radiation)
Social History
Tobacco: Non-smoker
Alcohol: Occasional
Drug: None
Personal:
Living: with family
Family History
Family History: Other (reviewed and non-contributory)
Review of Systems
Review of Systems
All Other Systems: ROS reviewed and negative except as documented in HPI and ROS
Skin: Reports other (Painful bump on vulva)
Phy Exam
Physical Exam
Physical Exam:
General: Well appearing and non-toxic
HEENT: protecting airway
Neck: appears supple
CV: No evidence of cyanosis
Resp: No accessory muscle use
Abd: Non-distended
Extremities: No deformities
Neuro: Alert
Psych: Normal affect
Skin: Patient has a very small superficial abscess on the right vulva approximately 1 cm total diameter with tiny central pustule, small area of erythema but no crepitus, no drainage no streaking redness
Scores
Heart Failure Risk
Heart Failure Risk Score: Not Applicable
Heart Score for Chest Pain Patients
STEMI patient?: Not applicable
Withdrawal Assessment of Alcohol
Withdrawal Assessment Completed?: Not applicable
Course
Orders/Labs/Results
Orders:
Orders
03/27/25 10:20
Amoxicillin 875 mg/Clav 125 mg [Augmentin 875 mg/125 mg] 1 tablet PO NOW STA
03/27/25 10:38
Wound Culture [Wound/Abscess/Other Culture] Urgent
FREDDY Source: Abscess
Specimen Description:
Date Specimen was Collected: 03/27/25
Time Specimen was Collected: 10:45
Comment: right vulva
Vital Signs
Initial and Last Documented VS:
Initial Vital Signs
Temp Pulse Resp BP Pulse Ox
36.9 C 83 15 143/75 100
03/27/25 09:09 03/27/25 09:09 03/27/25 09:09 03/27/25 09:09 03/27/25 09:09
Last Documented Vital Signs
Temp Pulse Resp BP Pulse Ox
36.9 C 83 15 143/75 100
03/27/25 09:09 03/27/25 09:09 03/27/25 09:09 03/27/25 09:09 03/27/25 10:20
Procedures
Incision/Drainage/Joint Aspiration
Right Vagina:
Anethesia: 1% Lidocaine with Epi
Preparation: cleaned with alcohol wipe
Type of procedure: incise and drain
Nature of site: abscess
Description of abscess: less than 3cm
Loculations broken up: No
How much fluid was obtained?: small amount
Fluid description: purulent
Treatment: left open for drainage
MDM/Problems Addressed
Differential Diagnosis Includes:
Vulvar abscess
MDM/Problems Addressed:
79-year-old female presents with a small superficial vulvar abscess she noted a few days ago. Vitals and exam as above. Performed I&D at bedside and culture sent of purulent drainage. Symptomatic improvement after drainage. Will start on short
course of antibiotics. Stable for discharge. Spoke about follow-up plan and return precautions and all questions answered.
*Pulse Oximetry
SaO2: 100
Oxygen Mode of Delivery: Room air
Patient hypoxic: no (100%)
*Critical Care Note
Total Time (30-74mins, 75-104mins- exclusive of procedures): Not Applicable
Data Reviewed
Source: patient, records and spouse
ED Attending Note
-
Portions of this chart may have been created with voice recognition software.� Occasional wrong word or��sound alike� substitutions may have occurred due to the inherent limitations of voice recognition software.
Discharge Plan
Departure
Patient Disposition: Home (Routine Discharge)
Date of Disposition: 03/27/25
Time of Disposition: 10:47
Patient with high blood pressure during this ER visit?: Yes
Discharge Problem:
Abscess of vulva
Instructions: Skin Abscess
Prescriptions:
New
amoxicillin-pot clavulanate 875-125 mg tablet
1 tab PO BID Qty: 10 0RF
No Action
levothyroxine 100 MCG tablet
100 mcg PO HS
simvastatin [Zocor] 40 mg Tablet
40 mg PO HS Qty: 0
lisinopril 20 mg Tablet
20 mg PO QPM
aspirin 81 mg Tablet,Delayed Release (Dr/Ec)
81 mg PO QPM
pantoprazole [Protonix] 40 mg tablet,delayed release (DR/EC)
40 mg PO DAILY Qty: 30 0RF
loperamide 2 mg Tablet
4 mg PO DAILYPRN PRN (Reason: dairrhea)
cyanocobalamin (vitamin B-12) 1,000 mcg/mL Drops
1,000 mcg SUBLINGUAL DAILY
amoxicillin-pot clavulanate 875-125 mg Tablet
1 tab PO Q12 Qty: 6 0RF
Referrals:
Buzz Barboza MD [Family Provider, Family Practice] - Follow up in 5-7 days
Activity Restrictions/Additional Instructions:
Thank you for visiting the Emergency Department at [facility].
1. Please schedule a follow up appointment as directed. Call first thing tomorrow morning to make an appointment.
2. If indicated, please take your medications as instructed and indicated on discharge paperwork.
3. If any of your symptoms do not improve, or persist, or become more severe within 6-12 hours, please return to the emergency department for further care.
4. Please return to the emergency department if you develop a headache, neck pain/stiffness, fever greater than 100.4F, chest pain, shortness of breath, persistent nausea, vomiting, slurred speech, difficulty walking, numbness/tingling, weakness,
signs of infection or any other symptoms that are worrisome to you.
Please call [phone] if you have any questions.
Interventions
Interventions:
*Risk Screen - Suicide Last Done: 03/27/25 09:01
*General Assessment Last Done: 03/27/25 10:43
*Neglect/Abuse Screening Last Done: 03/27/25 10:43
*ED- Fall Risk Assessment Last Done: 03/27/25 10:43
*ED COVID-19 Vaccine History Last Done: 03/27/25 10:43
ED-Skin Assessment Last Done: 03/27/25 10:44
Discharge Date and Time
Print Language: TUVALU[place]
[2025-03-27 10:42] VITALS: BMI 22.1
[2025-03-27] MEDS: AUGMENTIN 875 MG/125 MG 1 TABLET PO (10:45)
[2025-03-27 10:50] VITALS: BP 155/75
== END 2025-03-27 10:52 | disposition home or self-care (01) ==
LOC: EMR 08:59
PROVIDERS: EMERGENCY PHYSICIAN Emergency Medicine; FAMILY PHYSICIAN Family Medicine
DX: N76.4 Abscess of vulva (principal); R03.0 Elevated blood-pressure reading, without diagnosis of hypertension; E78.00 Pure hypercholesterolemia, unspecified; E03.9 Hypothyroidism, unspecified; R32 Unspecified urinary incontinence; Z79.82 Long term (current) use of aspirin; Z86.73 Personal history of transient ischemic attack (TIA), and cerebral infarction without residual deficits; Z85.42 Personal history of malignant neoplasm of other parts of uterus
CPT/HCPCS: 99283; 56405; 87070; 87205